=== PATIENT | female | born 1940 | race Caucasian/White ===

== ENCOUNTER → 2016-11-24 | Day surgery (SDC) | payer OTHER ==
[2016-11-12 10:43] VITALS: Ht 160 cm; Wt 88.6 kg
[~2016-11-24] VITALS: Ht 160 cm; Wt 88.6 kg
[~2016-11-24] MED LIST: 500ML BSS 0.3ML EPI 1:1000PF IRRIG ONE; ACET-749 PO; ACETAMINOPHEN 325 MG TAB PO PRN; AMVISC PLUS 0.8ML SYRINGE INT OCU ONE; ASPI81TA28 PO; ATROPINE SULFATE 0.1 MG/ML 5ML SYR IV PRN; BSS FLUSH ONE; EpHEDrine SULFATE INJ 50 MG/ML AMP IV PRN; EpINEphrine INJ 1MG/ML AMP 1 MG/ML AMP ONE; LACTATED RINGER'S 1000ML 500 ML IV SCH; LIDOCAINE 3.5% OPH GEL PER APPLICATION CHARGE ONE; LIDOCAINE HCL 1% MPF 2 ML VIAL ONE; LOSA1TAB38 PO; MIDAZOLAM HCL 1 MG/ML 2ML VIAL ONE; MULT-190 PO; NAPR1TAB9 PO; OCUCOAT 1 ML SOLN IO ONE; ONDANSETRON INJ 2 MG/ML 2 ML VIAL IV PRN; POVIDONE-IODINE OP SOLN 30 ML BTL ONE; PROPARACAINE 0.5% OP SOLN PER DROP CHARGE OPR SCH; SIMV40TA2 PO; SPIR1TAB71 PO; TEMA15CA4 PO; TOBRAMYCIN/DEXAMETHASONE OPH OINT PER APPLN CHARGE ONE; VENL37.593 PO; VITA1TAB4 PO; VNTHFA/IN INH; ZAFI1TAB10 PO
[2016-11-24] MEDS: PHENYLEPHRINE HCL 2.5% OP SOLN PER DROP CHARGE OPR SCH ×2 (11:02→11:06)
[2016-11-24] MEDS: TROPICAMIDE 1% OP SOLN PER DROP CHARGE OPR SCH ×2 (11:03→11:07)
[2016-11-24] MEDS: CYCLOPENTOLATE HCL 1% OP SOLN PER DROP CHARGE OPR SCH ×2 (11:03→11:08)
[2016-11-24] MEDS: GATIFLOXACIN OP SOLN PER DROP CHARGE OPR SCH ×2 (11:04→11:14)
[2016-11-24] MEDS: KETOROLAC 0.5% OP SOLN PER DROP CHARGE OPR SCH ×2 (11:04→11:08)
--- NOTE | 2016-11-24 11:18 | History & Physical Bridge - [place] ---
H&P Re-Evaluation Bridge Note: I have examined the patient, reviewed the History & Physical and in the interval since the performance of the History & Physical I have noted the following changes of clinical significance: No changes noted
--- NOTE | 2016-11-24 12:34 | Discharge Instructions-SurgCtr ---
Discharge Instructions Date of Service Nov 24, 2016. Visit Reason for Visit: Right Cataract Discharge Discharge Diagnosis / Problem: cataract Discharge Goals Goal(s): Improve function Medications Stopped Medications Name(s): Stopped ASA and Naproxen 1 week ago. Activity Recommendations Activity Limitations: per Instructions/Follow-up section Anesthesia . Post Anesthesia Instructions: If you have had General Anesthesia or IV Sedation: * Do not drive today. * Resume driving when surgeon permits. * Do not make important decisions or sign legal documents today. * Call surgeon for: 1. Temperature elevations greater than 101 degrees F. 2. Uncontrollable pain. 3. Excessive bleeding. 4. Persistent nausea and vomiting. 5. Medication intolerance (nausea, vomiting or rash). * For nausea and vomiting use only clear liquids such as: tea, soda, bouillon until nausea subsides, then gradually increase diet as tolerated. * If you have any concerns or questions, call your surgeon's office. If physician is unavailable and it is an emergency, call 911 or go to the nearest emergency room. . Instructions / Follow-Up Instructions / Follow-Up ACTIVITY RECOMMENDATIONS: * No strenuous lifting, jogging or running for 4 days * No swimming or yard work for 1 week. * Limited bending is permitted, such as putting on shoes. RETURN TO SCHOOL/WORK: No work until seen by physician in office. MEDICATIONS: Resume previous medications unless instructed otherwise by your surgeon. This includes eye drops for glaucoma. Zymaxid/Gatifloxacin (ramos cap) - one drop every 2 hours until bedtime Nevanac/Ilevro/Prolensa/Ketorolac (chen cap) - one drop every 4 hours until bedtime Prednisolone/Durezol (white/pink cap, SHAKE WELL) - one drop every 2 hours until bedtime Starting tomorrow - all 3 drops every 4 hours until seen in the office Optive drops - as needed for discomfort SPECIAL CARE INSTRUCTIONS: * Wear eyeshield when sleeping, for four nights. * You may wear your own glasses or sunglasses while awake. * You may read or watch TV * You may shower and wash your face, but be gentle around the eye and pat dry. * Blurry vision and mild irritation are normal. * Call office if pain is more severe or vision becomes dark at . FOLLOW UP VISIT: Follow-up with Dr Lawrence tomorrow. Diet Recommendations Home Diet: resume previous diet Procedures Procedures Performed: Right Cataract Phacoemulsification With Intraocular Lens Implant Pending Studies Studies pending at discharge: no Medical Emergencies . Who to Call and When: Medical Emergencies: If at any time you feel your situation is an emergency, please call 911 immediately. . Non-Emergent Contact Non-Emergency issues call your: Copy Lathe Operator . . "Provider Documentation" section prepared by Aaron Lawrence. .
[2016-11-24 12:35] VITALS: TEMP 36.3
--- NOTE | 2016-11-24 12:35 | [facility] Operative Report ---
Operative Report Date of Service Nov 24, 2016. Operative Report 1. PREOPERATIVE DIAGNOSIS: Cataract of the right eye. 2. POSTOPERATIVE DIAGNOSIS: Same. 3. PROCEDURE: Phacoemulsification with intraocular lens implantation of the right eye. SURGEON: Dr. Aaron Lawrence. ANESTHESIA: Topical Lidocaine gel, 1% Non- Preserved intracameral Lidocaine, and monitored intravenous sedation. INDICATIONS FOR THE PROCEDURE: The patient is a 76 - year-old female with a history of cataract of the right eye causing significant visual impairment. The details of the proposed procedure were explained to the patient who asked appropriate questions and following discussion of all risks, benefits and alternatives agreed to have the procedure done. 4. OPERATION AND FINDINGS: DESCRIPTION OF PROCEDURE: After informed consent was obtained, the patient was brought to the Operating Room at the [facility]. The patient was placed in a supine position and then the right eye was prepped and draped in the usual sterile fashion for intraocular surgery. A drop of topical Lidocaine gel was placed in the operative eye. A wire lid speculum was then placed in the fornices. A corneal paracentesis was then created temporally. The Non-Preserved Lidocaine was then instilled into the anterior chamber. The anterior chamber was then pressurized with viscoelastic. A 2.0 mm clear corneal incision was then created temporally. A cystotome was inserted into the anterior chamber and used to create a tear in the anterior lens capsule. This capsular tear was then used to create a small flap and the flap was dragged in a counterclockwise direction in order to create a continuous curvilinear capsulorrhexis. Hydrodissection was accomplished with balanced salt solution. Phacoemulsification of the lens nucleus was then performed in a standard [id number] technique. The phaco time was 24 seconds with an average power of 16 %. The remaining cortical material was removed using irrigation aspiration. The capsular bag was then filled with viscoelastic. A [employer]ch [employer] Lomb MI60L +18.5 diopters lens was then loaded into the injector and injected into the capsular bag. The remaining viscoelastic was removed with the irrigation aspiration handpiece. The wound was hydrated and then checked and found to be watertight. The intraocular pressure was checked and found to be adequate. The wire lid speculum was removed and the patient's face was cleaned and dried. TobraDex ointment was placed in the inferior fornix. The patient was discharged to the Recovery Room having tolerated the procedure well. There were no complications. The patient will be seen tomorrow in the office for follow-up. I attest to the content of the Intraoperative Record and any orders documented therein. Any exceptions are noted below.
--- NOTE | 2016-11-24 12:58 | Anesthesia Progress Nt - [facility] ---
Anesthesia Post Op Note Date & Time Nov 24, 2016 at 12:58 Vital Signs Pain Intensity: 0 Vital Signs Past 12 Hours Date Time Temp Pulse Resp B/P (MAP) Pulse Ox O2 Delivery O2 Flow Rate FiO2 11/24/16 12:35 36.3 91 16 162/70 (100) 98 Room Air 11/24/16 10:50 36.6 87 16 146/85 (105) 97 Room Air Notes Mental Status: alert / awake / arousable, participated in evaluation Pt Amnestic to Procedure: Yes Nausea / Vomiting: adequately controlled Pain: adequately controlled Airway Patency, RR, SpO2: stable & adequate BP & HR: stable & adequate Hydration State: stable & adequate Anesthetic Complications: no major complications apparent
[2016-11-24 12:59] VITALS: BP 127/67; PULSE 73; O2SAT 96
== END | disposition home or self-care (01) ==
LOC: X.SURG 10:26
PROVIDERS: ATTEND Ophthalmology
DX: H26.9 Unspecified cataract (principal); I10 Essential (primary) hypertension; E78.5 Hyperlipidemia, unspecified; Z79.899 Other long term (current) drug therapy; Z79.82 Long term (current) use of aspirin

== ENCOUNTER → 2017-03-19 | Outpatient (CLI) | payer OTHER ==
[~2017-03-19] MED LIST changes: -500ML BSS 0.3ML EPI 1:1000PF IRRIG ONE; -ACETAMINOPHEN 325 MG TAB PO PRN; -AMVISC PLUS 0.8ML SYRINGE INT OCU ONE; -ATROPINE SULFATE 0.1 MG/ML 5ML SYR IV PRN; -BSS FLUSH ONE; -EpHEDrine SULFATE INJ 50 MG/ML AMP IV PRN; -EpINEphrine INJ 1MG/ML AMP 1 MG/ML AMP ONE; -LACTATED RINGER'S 1000ML 500 ML IV SCH; -LIDOCAINE 3.5% OPH GEL PER APPLICATION CHARGE ONE; -LIDOCAINE HCL 1% MPF 2 ML VIAL ONE; -MIDAZOLAM HCL 1 MG/ML 2ML VIAL ONE; -OCUCOAT 1 ML SOLN IO ONE; -ONDANSETRON INJ 2 MG/ML 2 ML VIAL IV PRN; -POVIDONE-IODINE OP SOLN 30 ML BTL ONE; -PROPARACAINE 0.5% OP SOLN PER DROP CHARGE OPR SCH; -TOBRAMYCIN/DEXAMETHASONE OPH OINT PER APPLN CHARGE ONE
--- NOTE | 2017-03-19 15:38 | MAMMOGRAPHY REPORT ---
BILATERAL DIGITAL SCREENING MAMMOGRAM WITH CAD: 03/19/2017 CLINICAL HISTORY: Routine screening. Patient has no complaints. TECHNIQUE: Current study was also evaluated with a Computer Aided Detection (CAD) system. Bilateral CC and MLO views were obtained. COMPARISON: Comparison is made to exams dated: 03/15/2015 mammogram, 03/18/2016 mammogram, 12/08/2013 ma mmogram, 12/07/2012 mammogram, 12/07/2011 mammogram, and 12/04/2010 mammogram - [facility] nter. BREAST COMPOSITION: There are scattered areas of fibroglandular density in both breasts. FINDINGS: No suspicious masses, calcifications, or areas of architectural distortion are noted in ei ther breast. There has been no significant interval change compared to prior exams. Scattered bilater al benign-appearing calcifications are not significantly changed. IMPRESSION: ACR BI-RADS CATEGORY 2: BENIGN There is no mammographic evidence of malignancy. A 1 year screening mammogram is recommended. The pa tient will receive written notification of the results. Approximately 10% of breast cancers are not detected with mammography. A negative mammographic report should not delay biopsy if a clinically suggestive mass is present. Ashley Wilcox M.D. ah/:03/19/2017 14:02:33 Marketing Operations Intern: Elizabet MENDEZ(R)(M), [facility] letter sent: Normal 1/2 BI-RADS Code: ACR BI-RADS Category 2: Benign
== END | disposition home or self-care (01) ==
LOC: C.MAMM 12:17
PROVIDERS: ATTEND Family Medicine
DX: Z12.31 Encounter for screening mammogram for malignant neoplasm of breast (principal)

== ENCOUNTER 2025-01-17 17:04 | Inpatient (IN) ==
--- NOTE | 2025-01-17 17:21 | Emergency Department Note ---
Impression & Plan Closed right hip fracture, Elevated troponin, Acute dehydration ED Provider Note NAME: CRISTOBAL KUNZ AGE: 84 SEX: F : 1940 ARRIVES VIA: Ambulance INFORMANT: Patient, ED PROVIDER(S): Amarjit Chester MD CHIEF COMPLAINT: Fall, found down MEDICAL DECISION MAKING: Patient presents due to concern for being found down. IV was established and blood work was obtained. Empiric IV Zosyn ordered along with screening chest x- ray bilateral knees as well as right hip and pelvis. Patient likely does have a femoral neck fracture. Patient did receive IV fluids. Patient's troponin is positive at 654 but denies any chest pain. EKG without signs of obvious ischemic changes. Initial lactate of 1.8 CK is normal. White count of 16 with a normal hemoglobin and platelet count. Urinalysis does not show evidence of obvious infection but ketones present consistent with dehydration. Concern for femoral neck fracture Dr. Padgett recommends dedicated hip and femur films of the right side. Patient's other plain films are unremarkable. CT head and cervical spine negative for fracture or dislocation or ICH. Dr. Padgett did review the plain imaging and recommended a CT of the pelvis which is ordered. I did speak the on-call hospital service Dr. Brink and the patient was admitted to the medicine service. Discussion w/ other healthcare providers: Dr. Padgett orthopedics Dr. Brink inpatient medicine service Prior /Outside records reviewed: None Differential diagnosis: Fracture, dislocation, contusion, strain, sprain, ICH, hemothorax, intra- abdominal injury, anemia among other causes were considered. Diagnostics, as interpreted by me: ECG: Normal sinus rhythm, rate of 93, normal intervals, normal axis Q waves anteriorly no obvious STEMI. Motion artifact in V4. Cardiac monitoring: An order was placed for continuous cardiac monitoring. The monitor shows a rate of 90 with sinus rhythm. Patient was placed on pulse oximetry Medical decision rules: None Imaging studies: I informally interpreted the patient's pelvic x-ray shows concern for right femoral neck fracture with formal report to follow. HPI:Patient presents from home after being found down by the hairdresser. Likely down for approximate day in duration. Patient primarily does complain of right hip pain. BSG prior to arrival was in the 130s. Afebrile. Patient denies any head neck chest back or abdominal pain. Patient does not take any blood thinning medications. PAST MEDICAL HISTORY: See Below PAST SURGICAL HISTORY: See Below SOCIAL HISTORY: See Below HOME MEDICATIONS: See Below ALLERGIES: See Below VITALS: See Below PHYSICAL EXAMINATION: GENERAL: Soiled, awake and alert does follow commands. EYE EXAM: Normal conjunctiva. PERRL, no anisocoria and EOM's grossly intact w/o pain. OROPHARYNX: Dry mucus membranes, grossly normal dentition. NECK: Trachea midline, no stridor. LUNGS: Clear to auscultation. Normal chest wall mechanics. HEART: NSR, no MRG. ABDOMEN: Abdomen soft, non-tender, no masses, no rebound or guarding. BACK: No CVA TTP. No midline thoracic or lumbar TTP. SKIN: Bruising noted to the bilateral knees as well as right hip. UPPER EXTREMITIES: Upper extremities are grossly normal. LOWER EXTREMITIES: Pain to palpation of the right hip and bilateral knees. Decreased range of motion of right lower extremity secondary to pain. NEURO EXAM: Awake and alert, follows commands, no obvious facial asymmetry, normal speech, moves all 4 extremities. Past Med/Surg History Problem List (Updated 01/18/25 @ 15:46 by Amarjit Chester MD) Acute dehydration (Acute) Abnormal echocardiogram Age-related osteoporosis with current pathol fracture of right femur History of kidney cancer Fall from standing Hypokalemia Stercoral colitis Demand ischemia of myocardium Elevated troponin (Acute) Closed right hip fracture (Acute) Encounter for pre-operative examination Medical History (Updated 01/18/25 @ 15:46 by Amarjit Chester MD) Osteoarthritis Macular degeneration of left eye Depression Anxiety Cancer kidney cancer Hypothyroidism Hypertension Hyperlipidemia Seasonal allergies Environmental allergies Asthma Surgical History Hx of cataract extraction right Hx of cholecystectomy History of ovarian cystectomy History of tonsillectomy and adenoidectomy Hx of appendectomy Hx of total hysterectomy History of pancreatic surgery cyst removed Hx of partial thyroidectomy right side History of right nephrectomy Social History Smoking Status: Never smoker Second Hand Exposure: No; Do You Dip or Chew Tobacco: No; Hx Alcohol Use: Yes Alcohol type: wine Hx Substance Use: No Preferred Language: Setswana Communication Ability: Effective Associate Doctor Required: No Beliefs That Will Affect Care: None Current Living Situation: Spouse Other Information That Helps Us Care for You: No Feels Safe at Home: Yes Safety Concerns: Feels Safe At This Time Assistive Devices: Cane, Glasses and Walker Allergies Allergies Allergy/AdvReac Type Severity Reaction Status Date / Time Iodinated Contrast Media Allergy Intermediate HIVES,RASH Verified 09/20/18 10:03 [Iodinated Contrast- Oral and IV Dye] Home Meds Home Medications Medication Instructions Recorded Confirmed aspirin 81 mg tablet,delayed 81 mg PO QAM 08/23/18 01/17/25 release (Mateus Low Dose Aspirin) hydrochlorothiazide 25 mg tablet 25 mg PO QDL 08/23/18 01/17/25 latanoprost 0.005 % eye drops 1 drp OPB HS 08/23/18 01/17/25 losartan 100 mg tablet 100 mg PO QPM 08/23/18 01/17/25 omeprazole magnesium 20 mg 20 mg PO QAM 08/23/18 01/17/25 tablet,delayed release (Prilosec OTC) rizatriptan 10 mg disintegrating 10 mg PO DAILY PRN Migraine 08/23/18 01/17/25 tablet (Maxalt-UNDERBASTER) Headache simvastatin 40 mg tablet 40 mg PO PM 08/23/18 01/17/25 sulindac 150 mg tablet 150 mg PO BID 08/23/18 01/17/25 temazepam 15 mg capsule 15 mg PO HS PRN Sleep 08/23/18 01/17/25 venlafaxine 37.5 mg tablet 37.5 mg PO QPM 08/23/18 01/17/25 vit C 50 mg-E 15 unit-zinc cit 4.5 1 tab PO QDL 08/23/18 01/17/25 mg-lutein 2.5 mg-zeaxan chew tablet ([facility] vitamin E 268 mg (400 unit) capsule 400 unit PO QAM 08/23/18 01/17/25 cinacalcet 30 mg tablet 30 mg PO QAM 01/17/25 01/17/25 duloxetine 60 mg capsule,delayed 120 mg PO QAM 01/17/25 01/17/25 release famotidine 20 mg tablet 20 mg PO HS 01/17/25 01/17/25 metoprolol succinate 100 mg 100 mg PO QAM 01/17/25 01/17/25 tablet,extended release 24 hr pregabalin 50 mg capsule 50 mg PO TID 01/17/25 01/17/25 zafirlukast 20 mg tablet 20 mg PO QAM 01/17/25 01/17/25 Results & Data (ED) Vital Signs Vital Signs - 24 hr 01/17/25 17:17 01/17/25 17:26 01/17/25 17:26 Temperature 36.6 C 36.6 C Temperature Source Oral Pulse Rate 88 88 Pulse Rate [Apical] Pulse Rate from SpO2 Sensor Respiratory Rate 16 16 Blood Pressure 159/83 H 159/83 H Blood Pressure [Left Arm] Blood Pressure Mean 108 Blood Pressure Mean [Left Arm] Blood Pressure Position [Left Arm] Pulse Oximetry 100 100 Oxygen Delivery Method Room Air Room Air Room Air Oxygen Flow Rate 0 Sepsis New/Unexplained Change in Mental Status No Sepsis Action Taken by Nursing No Action Required 01/17/25 17:30 01/17/25 17:31 01/17/25 17:36 Temperature Temperature Source Pulse Rate 88 96 H Pulse Rate [Apical] Pulse Rate from SpO2 Sensor 91 H Respiratory Rate 19 Blood Pressure 168/90 H Blood Pressure [Left Arm] Blood Pressure Mean 126 Blood Pressure Mean [Left Arm] Blood Pressure Position [Left Arm] Pulse Oximetry 96 Oxygen Delivery Method Room Air Oxygen Flow Rate Sepsis New/Unexplained Change in Mental Status Sepsis Action Taken by Nursing 01/17/25 17:51 01/17/25 18:00 01/17/25 18:08 Temperature Temperature Source Pulse Rate 91 H 89 Pulse Rate [Apical] Pulse Rate from SpO2 Sensor 90 Respiratory Rate 16 20 Blood Pressure 163/86 H Blood Pressure [Left Arm] Blood Pressure Mean 129 Blood Pressure Mean [Left Arm] Blood Pressure Position [Left Arm] Pulse Oximetry 97 Oxygen Delivery Method Room Air Oxygen Flow Rate Sepsis New/Unexplained Change in Mental Status Sepsis Action Taken by Nursing 01/17/25 18:26 01/17/25 18:44 01/17/25 19:33 Temperature Temperature Source Pulse Rate Pulse Rate [Apical] 102 H Pulse Rate from SpO2 Sensor Respiratory Rate 20 18 Blood Pressure Blood Pressure [Left Arm] 168/78 H 153/81 H Blood Pressure Mean Blood Pressure Mean [Left Arm] 108 105 Blood Pressure Position [Left Arm] Lying Pulse Oximetry 96 98 Oxygen Delivery Method Room Air Room Air Room Air Oxygen Flow Rate Sepsis New/Unexplained Change in Mental Status Sepsis Action Taken by Snf Medications Current Medication List: was personally reviewed by me Laboratory Data Attestation: I reviewed the patient's lab results. 01/18/25 07:41 01/18/25 07:41 Lab Results 01/17/25 01/17/25 Range/Units 15:51 19:25 WBC 16.85 H (4.8-10.8) K/ul RBC 4.45 (4.20-5.40) M/uL Hgb 13.5 (12.0-16.0) g/dl Hct 39.8 (37.0-47.0) % MCV 89.4 (80.0-100.0) fL MCH 30.3 (25.0-34.0) pg MCHC 33.9 (32.0-36.0) g/dL RDW Std Deviation 45.9 (36.4-46.3) fL RDW Coeff of Gary 14.0 (11.5-14.5) % Plt Count 241 (130-400) K/uL MPV 11.4 (9.4-12.4) fL Immature Gran % (Auto) 0.9 % Neut % (Auto) 86.7 % Lymph % (Auto) 5.2 % Ward % (Auto) 7.1 % Eos % (Auto) 0.0 % Baso % (Auto) 0.1 % Neut # (Auto) 14.61 H (1.40-6.50) K/uL Lymph # (Auto) 0.87 L (1.20-3.40) K/uL Ward # (Auto) 1.19 H (0.11-0.59) K/uL Eos # (Auto) 0.00 (0.00-0.50) K/uL Baso # (Auto) 0.02 (0.00-0.20) K/uL Immature Gran # (Auto) 0.16 (0.01-0.20) K/uL PT 10.5 (9.0-12.0) Seconds INR 1.0 (0.9-1.1) APTT 27 (21-31) Seconds PTT Ratio 1.0 Sodium 141 (136-145) mmol/L Potassium 3.1 L (3.5-5.1) mmol/L Chloride 106 (98-107) mmol/L Carbon Dioxide 27 (21-32) mmol/L Anion Gap 8 (3-11) BUN 28 H (6-23) mg/dl Creatinine 0.66 (0.6-1.2) mg/dl Est Cr Clr Drug Dosing 65.2 ml/min eGFR 87.53 BUN/Creatinine Ratio 42.4 H (10-20) Glucose 148 H (70-99(Fasting)) mg/dl Lactate 1.8 (0.4-2.0) mmol/L Calcium 10.7 H (8.6-10.3) mg/dl Magnesium 2.0 (1.7-2.4) mg/dl Total Bilirubin 1.0 (0.2-1.0) mg/dl AST 33 (13-39) U/L ALT 25 (7-52) U/L Alkaline Phosphatase 82 (34-104) U/L Total Creatine Kinase 178 (26-192) U/L Troponin I High Sens 654.7 H* (0-14) pg/ml Total Protein 5.9 L (6.0-8.3) gm/dl Albumin 3.1 L (3.4-5.0) gm/dl Globulin 2.8 (2.5-4.0) gm/dl Albumin/Globulin Ratio 1.1 (0.9-2) Lipase < 3 L (11-82) U/L Procalcitonin 0.09 (0-0.5) ng/ml TSH 1.838 (0.300-4.500) uIu/ml Urine Color Dark Yellow Urine Appearance Clear (Clear) Urine pH 6.0 (4.5-7.5) Ur Specific [place] 1.031 H (1.000-1.030) Urine Protein 2+ H (Negative) Urine Glucose (UA) Trace H (Negative) Urine Ketones 3+ H (Negative) Urine Blood Negative (Negative) Urine Nitrite Negative (Negative) Urine Bilirubin Negative (Negative) Urine Urobilinogen Negative (Negative) Ur Leukocyte Esterase Negative (Negative) Urine WBC (Auto) 0-5 (0-5) /hpf Urine RBC (Auto) 0-2 (0-2) /hpf U Hyaline Cast (Auto) 0-2 (0-2) /lpf U Epithel Cells (Auto) 3-5 H (0-2) /hpf Urine Bacteria (Auto) None Seen (None Seen) Urine Comment Administered Medications Acetaminophen (Acetaminophen 500 Mg Tab) 1,000 mg PO TID [facility] Stop: 02/17/25 08:59 Last Admin: 01/18/25 11:16 Dose: Not Given Documented By: ALONZO Cinacalcet (Cinacalcet Hcl 30 Mg Tab) 30 mg PO QAM [facility] Stop: 02/17/25 08:59 Last Admin: 01/18/25 08:36 Dose: Not Given Documented By: ALONZO Docusate Sodium (Docusate Sodium 100 Mg Cap) 100 mg PO BID JJ Stop: 02/17/25 08:59 Last Admin: 01/18/25 11:16 Dose: Not Given Documented By: ALONZO Duloxetine HCl (Dul[facility]etine Hcl 60 Mg Cap) [facility] [place]: 02/17/25 08:59 Last Admin: 01/18/25 08:36 Dose: Not Given Documented By: ALONZO Famotidine (Famotidine 20 Mg Tab) 20 mg PO [facility] Stop: 02/17/25 00:12 Last Admin: 01/18/25 01:33 Dose: 20 mg Documented By: RICHARD Ceftriaxone Sodium (Rocephin) 1,000 mg in 50 mls @ 100 mls/hr IV Q24H [facility] Stop: 01/22/25 08:59 Last Infusion: 01/18/25 15:25 Dose: Infused Documented By: Admin: 01/18/25 10:37 Dose: 100 mls/hr Documented By: MG Lactulose (Lactulose Syrup 20 Gm/30 Ml Udc) 20 gm PO TID [facility] Stop: 02/17/25 08:59 Last Admin: 01/18/25 11:16 Dose: Not Given Documented By: ALONZO Latanoprost (Latanoprost 0.005% Op Soln 2.5 Ml Btl) 1 drops OPB [facility] Stop: 02/17/25 00:12 Last Admin: 01/18/25 01:35 Dose: 1 drops Documented By: RICHARD Losartan Potassium (Losartan Potassium 50 Mg Tab) 100 mg PO QPM [facility] Stop: 02/17/25 00:12 Last Admin: 01/18/25 01:33 Dose: 100 mg Documented By: RICHARD Metoprolol Succinate (Metoprolol Succ 50mg Ext Rel Tab) [facility] [place]: 02/17/25 08:59 Last Admin: 01/18/25 08:34 Dose: 100 mg Documented By: ALONZO Miscellaneous (Zafirlukast - Order Awaiting Action) 1 each N/A QS [facility] Stop: 02/17/25 07:59 Last Admin: 01/18/25 08:29 Dose: Not Given Documented By: ALONZO Multivitamins/Minerals (Cerovite Adv Formula Tab) 1 tab PO QDL JJ Stop: 02/17/25 11:29 Last Admin: 01/18/25 12:38 Dose: Not Given Documented By: ALONZO Pantoprazole Sodium (Pantoprazole 40 Mg Tab) 40 mg PO QAM [facility] Stop: 02/17/25 08:59 Last Admin: 01/18/25 08:36 Dose: Not Given Documented By: ALONZO Pregabalin (Pregabalin 50 Mg Cap) 50 mg PO TID [facility] Stop: 02/17/25 00:12 Last Admin: 01/18/25 08:34 Dose: 50 mg Documented By: Admin: 01/18/25 01:33 Dose: 50 mg Documented By: RICHARD Simvastatin (Simvastatin 40 Mg Tab) 40 mg PO PM JJ Stop: 02/17/25 00:12 Last Admin: 01/18/25 01:34 Dose: 40 mg Documented By: RICHARD Venlafaxine HCl (Venlafaxine Hcl 37.5 Mg Tab) 37.5 mg PO QPM [facility] Stop: 02/17/25 00:12 Last Admin: 01/18/25 01:34 Dose: 37.5 mg Documented By: RICHARD Vitamin E (Tocopheryl, Dl-Alpha 400 Units 180 Mg Cap) 180 mg PO QAM [facility] Stop: 02/17/25 08:59 Last Admin: 01/18/25 08:36 Dose: Not Given Documented By: ALONZO Discontinued Medications Fentanyl Citrate (Fentanyl Citrate Pf 100 Mcg/2 Ml Vial) 25 mcg IV Q5M PRN PRN Reason: PACU Use Only-Pain Stop: 01/18/25 18:33 Last Admin: 01/18/25 13:33 Dose: 25 mcg Documented By: MAC Piperacillin Sod/Tazobactam Sod (Zosyn) 4.5 gm in 100 mls @ 200 mls/hr IV NOW ONE; Protocol Stop: 01/17/25 17:50 Last Infusion: 01/17/25 19:32 Dose: Infused Documented By: Admin: 01/17/25 18:38 Dose: 200 mls/hr Documented By: GARY Sodium Chloride (Nss) 1,000 mls @ 999 mls/hr IV .Q1H1M ONE Stop: 01/17/25 18:21 Last Infusion: 01/17/25 22:46 Dose: Infused Documented By: Admin: 01/17/25 18:11 Dose: 999 mls/hr Documented By: GARY Piperacillin Sod/Tazobactam Sod (Zosyn) 4.5 gm in 100 mls @ 25 mls/hr IV Q8H JJ; Protocol Stop: 01/20/25 00:59 Last Infusion: 01/18/25 08:56 Dose: Infused Documented By: Admin: 01/18/25 08:49 Dose: 25 mls/hr Documented By: Infusion: 01/18/25 06:40 Dose: Infused Documented By: Admin: 01/18/25 01:33 Dose: 25 mls/hr Documented By: RICHARD Potassium Chloride (K Ben[place] / Wtr) 10 meq in 100 mls @ 100 mls/hr IV Q1H JJ Stop: 01/17/25 22:44 Last Infusion: 01/17/25 23:46 Dose: Infused Documented By: Admin: 01/17/25 22:46 Dose: 100 mls/hr Documented By: Infusion: 01/17/25 22:14 Dose: Infused Documented By: Admin: 01/17/25 21:14 Dose: 100 mls/hr Documented By: Acetaminophen (Ofirmev) 1,000 mg in 100 mls @ 400 mls/hr IV NOW STA Stop: 01/18/25 02:44 Last Admin: 01/18/25 03:51 Dose: Not Given Documented By: RICHARD Sodium Chloride (Nss) 1,000 mls @ 80 mls/hr IV .[id number] JJ Stop: 01/21/25 08:59 Last Admin: 01/18/25 09:58 Dose: 80 mls/hr Documented By: ALONZO Cefazolin Sodium (Ancef 2000mg) 2,000 mg in 15 mls @ 3.75 mls/min IV ONCE ONE; Protocol Stop: 01/18/25 12:32 Last Admin: 01/18/25 11:11 Dose: 3.75 mls/min Documented By: MEGHA Potassium Chloride (Potassium Chloride Crtab 20 Meq Tabcr) 20 meq PO NOW STA Stop: 01/17/25 20:45 Last Admin: 01/17/25 21:14 Dose: 20 meq Documented By: Potassium Chloride (Potassium Chloride Crtab 20 Meq Tabcr) 40 meq PO NOW STA Stop: 01/18/25 07:37 Last Admin: 01/18/25 08:56 Dose: 40 meq Documented By: ALONZO Imaging Data Radiologist's Impression: Chest X-Ray 01/17/25 17:09 Clinical History: Trauma Technique: A frontal view of the chest was obtained Findings: There are no confluent pulmonary infiltrates. The heart size is within normal limits. No pleural effusion or pneumothorax is seen. There is no definite pulmonary nodule. No fracture is noted. There is thoracic scoliosis and degenerative disc disease Impression: No active disease Electronically signed by Shalom Hameed 01-17-2025 6:08 PM Pelvis X-Ray 01/17/25 17:09 Clinical History: Trauma One view of the pelvis is submitted for review. Findings: There is a possible right femoral neck fracture. Evaluation is limited by suboptimal positioning No subluxation or dislocation is seen. No significant arthritic changes are noted. No other osseous abnormality is identified. There are no radiopaque foreign bodies. Impression: Possible right femoral neck fracture. Additional radiographic views or CT is recommended ACT 112: Positive. There are findings on this exam that require communication between the performing entity and the patient following Patient Test Result Information Act ([place] ACT 112) guidelines. Electronically signed by Shalom Hameed 01-17-2025 6:[address] 01/17/25 17:10 Clinical history: Fall Technique: Axial computed tomography images were obtained of the cervical spine without intravenous contrast. Sagittal and coronal reconstructions were obtained Findings: No fracture is identified. No listhesis is seen. No focal osseous lesion is evident. There is atlantoaxial osteoarthritis At C2-3, no disc herniation is identified. There is no spinal stenosis. The neural foramen are patent At C3-4, there is a mild disc bulge without spinal stenosis. There is left neural foramen narrowing that may affect the left C4 nerve root At C4-5, there is mild spinal stenosis due to a disc bulge and a left paracentral disc protrusion. There is right neural foramen narrowing that may affect the right C5 nerve root At C5-6, there is spinal stenosis due to a disc bulge. There is bilateral neural foramen narrowing that may affect the exiting C6 nerve roots At C6-7, there is a disc bulge without clear spinal cord deformity. There is left neural foramen narrowing that may affect the left C7 nerve root At C7-T1, there is a mild disc bulge without spinal stenosis. The neural foramen are patent The lung apices appear clear. The visualized soft tissues of the neck appear unremarkable. No foreign body is seen Impression: 1. No definite cervical spine fracture 2. Spinal stenosis at C4-5 and C5-6 3. Left C3-4, right C4-5, bilateral C5-6, and left C6-7 neural foramen narrowing. This may affect the exiting nerve roots Electronically signed by Shalom Hameed 01-17-2025 7:[address] 01/17/25 17:10 Clinical History: Fall Technique: Axial computed tomography images were obtained of the brain without intravenous contrast. Findings: There is diffuse cerebral atrophy, within expected limits for the patient's age. Areas of decreased attenuation are seen within the periventricular white matter, likely representing chronic small vessel ischemic disease. There is no definite sign of acute or old infarction. No intracranial hemorrhage is evident. No definite mass lesion is seen on this noncontrast examination. There is no midline shift or other form of herniation. No hydrocephalus is seen. No fracture is identified. The orbits and the visualized paranasal sinuses appear unremarkable. The mastoid air cells appear clear. Impression: 1. Cerebral atrophy and chronic small vessel ischemic disease 2. Otherwise unremarkable noncontrast CT of the brain Electronically signed by Shalom Hameed 01-17-2025 6:47 PM Femur X-Ray 01/17/25 17:21 Clinical History: Pain. 4 views of the left femur are submitted for review. Findings: No fracture or dislocation is seen. No significant arthritic changes of the left hip joint are noted. No other osseous abnormality is identified. There are no radiopaque foreign bodies. Impression: Unremarkable radiographs of the left femur Electronically signed by Shalom Hameed 01-17-2025 6:17 PM Knee X-Ray 01/17/25 17:21 Clinical History: Pain. 3 views of the right knee are submitted for review. Findings: No fracture or dislocation is seen. There is joint space narrowing in the medial and lateral compartments. There are osteophytes in all 3 compartments. No other osseous abnormality is identified. There are no radiopaque foreign bodies. Impression: Severe right knee osteoarthritis Electronically signed by Shalom Hameed 01-17-2025 6:17 PM Knee X-Ray 01/17/25 17:21 Clinical History: Pain. 3 views of the left knee are submitted for review. Findings: No fracture or dislocation is seen. There is joint space narrowing in the medial compartment. There are osteophytes in all 3 compartments. No other osseous abnormality is identified. There are no radiopaque foreign bodies. Impression: Moderate severity left knee osteoarthritis Electronically signed by Shalom Hameed 01-17-2025 6:16 PM Femur X-Ray 01/17/25 19:37 Frontal and lateral views of the right femur. No comparison Impression Subtle luce obliquely oriented lucency in the intertrochanteric region seen on the frontal image and again faintly visualized on the crosstable lateral suggesting a nondisplaced intertrochanteric fracture within same. CT of the right hip recommended for further evaluation. Advanced degenerative changes of the right knee. Electronically signed by Moses Emerson 01-17-2025 8:49 PM Pelvis X-Ray 01/17/25 19:37 Exam(s): XR PELVIS, 1-2 views EXAM: XR Pelvis, 1 or 2 Views CLINICAL HISTORY: Reason for exam: fall, pain. TECHNIQUE: Frontal view of the pelvis. COMPARISON: 01/17/2025 FINDINGS: Bones/joints: No acute fracture. No dislocation. Soft tissues: Unremarkable. IMPRESSION: No acute osseous findings. Electronically signed by: Samantha Helton M.D. 01/17/25 22:50 PM Discharge Plan Visit Data Chief Complaint: Trauma Stated Complaint: FALL, CONFUSION ED Provider: Amarjit Chester Discharge Problem: Closed right hip fracture, Elevated troponin, Acute dehydration Patient Disposition: Admitted As Inpatient Condition: Fair Discharge Instructions Interventions: ED Discharge Assessment Last Done: 01/17/25 23:13 Discharge Problem: Closed right hip fracture Qualifiers: Encounter type: initial encounter Qualified Code(s): S72.001A - Fracture of unspecified part of neck of right femur, initial encounter for closed fracture
[2025-01-17 17:36] LABS: Hematocrit (blood only) 39.8 % (37.0-47.0); Hemoglobin 13.5 g/dl (12.0-16.0); Immature Granulocytes # (auto) 0.16 K/uL (0.01-0.20); Immature Granulocytes % (auto) 0.9 %; Mean Corpuscular Hemoglobin 30.3 pg (25.0-34.0); Mean Corpuscular Volume 89.4 fL (80.0-100.0); Platelet Count 241 K/uL (130-400); RDW Standard Deviation 45.9 fL (36.4-46.3); Red Blood Count 4.45 M/uL (4.20-5.40); White Blood Count 16.85 K/ul (4.8-10.8)
[2025-01-17 17:57] LABS: Anion Gap 8 (3-11); Blood Urea Nitrogen 28 mg/dl (6-23); Calcium 10.7 mg/dl (8.6-10.3); Carbon Dioxide 27 mmol/L (21-32); Chloride 106 mmol/L (98-107); Creatinine Clr Calc Pharmacy 65.2 ml/min; Glucose 148 mg/dl (70-99(Fasting)); Potassium 3.1 mmol/L (3.5-5.1); Sodium 141 mmol/L (136-145)
[2025-01-17 18:05] LABS: Alanine Aminotransferase 25 U/L (7-52); Albumin Globulin Ratio 1.1 (0.9-2); Alkaline Phosphatase 82 U/L (34-104); Bilirubin,Total 1.0 mg/dl (0.2-1.0); Creatine Kinase 178 U/L (26-192); Globulin 2.8 gm/dl (2.5-4.0); Lipase < 3 U/L (11-82); Magnesium 2.0 mg/dl (1.7-2.4); Total Protein 5.9 gm/dl (6.0-8.3)
[2025-01-17 18:07] LABS: INR 1.0 (0.9-1.1); Partial Thromboplastin Time 27 Seconds (21-31); Prothrombin Time 10.5 Seconds (9.0-12.0)
[2025-01-17 18:09] LABS: Thyroid Stimulating Hormone 1.838 uIu/ml (0.300-4.500)
--- NOTE | 2025-01-17 18:10 | XRay Report ---
Clinical History: Trauma One view of the pelvis is submitted for review. Findings: There is a possible right femoral neck fracture. Evaluation is limited by suboptimal positioning No subluxation or dislocation is seen. No significant arthritic changes are noted. No other osseous abnormality is identified. There are no radiopaque foreign bodies. Impression: Possible right femoral neck fracture. Additional radiographic views or CT is recommended ACT 112: Positive. There are findings on this exam that require communication between the performing entity and the patient following Patient Test Result Information Act ([place] ACT 112) guidelines. Electronically signed by Shalom Hameed 01-17-2025 6:08 PM
--- NOTE | 2025-01-17 18:10 | XRay Report ---
Clinical History: Trauma Technique: A frontal view of the chest was obtained Findings: There are no confluent pulmonary infiltrates. The heart size is within normal limits. No pleural effusion or pneumothorax is seen. There is no definite pulmonary nodule. No fracture is noted. There is thoracic scoliosis and degenerative disc disease Impression: No active disease Electronically signed by Shalom Hameed 01-17-2025 6:08 PM
[2025-01-17] MEDS: SODIUM CHLORIDE 0.9% 1,000 ML IV ONE (18:11)
--- NOTE | 2025-01-17 18:17 | XRay Report ---
Clinical History: Pain. 3 views of the left knee are submitted for review. Findings: No fracture or dislocation is seen. There is joint space narrowing in the medial compartment. There are osteophytes in all 3 compartments. No other osseous abnormality is identified. There are no radiopaque foreign bodies. Impression: Moderate severity left knee osteoarthritis Electronically signed by Shalom Hameed 01-17-2025 6:16 PM
--- NOTE | 2025-01-17 18:18 | XRay Report ---
Clinical History: Pain. 3 views of the right knee are submitted for review. Findings: No fracture or dislocation is seen. There is joint space narrowing in the medial and lateral compartments. There are osteophytes in all 3 compartments. No other osseous abnormality is identified. There are no radiopaque foreign bodies. Impression: Severe right knee osteoarthritis Electronically signed by Shalom Hameed 01-17-2025 6:17 PM
--- NOTE | 2025-01-17 18:18 | XRay Report ---
Clinical History: Pain. 4 views of the left femur are submitted for review. Findings: No fracture or dislocation is seen. No significant arthritic changes of the left hip joint are noted. No other osseous abnormality is identified. There are no radiopaque foreign bodies. Impression: Unremarkable radiographs of the left femur Electronically signed by Shalom Hameed 01-17-2025 6:17 PM
[2025-01-17] MEDS: PIPERACILLIN/TAZOBACTAM 4.5 GM/100 ML BAG IV ONE (18:38)
--- NOTE | 2025-01-17 18:47 | CT Scan Report ---
Clinical History: Fall Technique: Axial computed tomography images were obtained of the brain without intravenous contrast. Findings: There is diffuse cerebral atrophy, within expected limits for the patient's age. Areas of decreased attenuation are seen within the periventricular white matter, likely representing chronic small vessel ischemic disease. There is no definite sign of acute or old infarction. No intracranial hemorrhage is evident. No definite mass lesion is seen on this noncontrast examination. There is no midline shift or other form of herniation. No hydrocephalus is seen. No fracture is identified. The orbits and the visualized paranasal sinuses appear unremarkable. The mastoid air cells appear clear. Impression: 1. Cerebral atrophy and chronic small vessel ischemic disease 2. Otherwise unremarkable noncontrast CT of the brain Electronically signed by Shalom Hameed 01-17-2025 6:47 PM
--- NOTE | 2025-01-17 19:52 | CT Scan Report ---
Clinical history: Fall Technique: Axial computed tomography images were obtained of the cervical spine without intravenous contrast. Sagittal and coronal reconstructions were obtained Findings: No fracture is identified. No listhesis is seen. No focal osseous lesion is evident. There is atlantoaxial osteoarthritis At C2-3, no disc herniation is identified. There is no spinal stenosis. The neural foramen are patent At C3-4, there is a mild disc bulge without spinal stenosis. There is left neural foramen narrowing that may affect the left C4 nerve root At C4-5, there is mild spinal stenosis due to a disc bulge and a left paracentral disc protrusion. There is right neural foramen narrowing that may affect the right C5 nerve root At C5-6, there is spinal stenosis due to a disc bulge. There is bilateral neural foramen narrowing that may affect the exiting C6 nerve roots At C6-7, there is a disc bulge without clear spinal cord deformity. There is left neural foramen narrowing that may affect the left C7 nerve root At C7-T1, there is a mild disc bulge without spinal stenosis. The neural foramen are patent The lung apices appear clear. The visualized soft tissues of the neck appear unremarkable. No foreign body is seen Impression: 1. No definite cervical spine fracture 2. Spinal stenosis at C4-5 and C5-6 3. Left C3-4, right C4-5, bilateral C5-6, and left C6-7 neural foramen narrowing. This may affect the exiting nerve roots Electronically signed by Shalom Hameed 01-17-2025 7:52 PM
[2025-01-17 20:02] LABS: Appearance Urine Clear (Clear); Bacteria Urine Automated None Seen (None Seen); Cast Urine Automated 0-2 /lpf (0-2); Glucose Urine UA Trace (Negative); RBC Urine Automated 0-2 /hpf (0-2); WBC Urine Automated 0-5 /hpf (0-5)
--- NOTE | 2025-01-17 20:40 | History & Physical Report ---
Date of Service January 17, 2025 Assessment & Plan (1) Closed right hip fracture: Plan: Has had a fall sometime last evening with history of fall Not being able to get off following the fall and probably was on the floor overnight Skeletal survey showed right hip fracture Will get orthopedic consultation Leukocytosis Likely secondary to fracture UA is not suggestive of infection Likely has early decubiti Received Zosyn and will continue empirically Skeletal Survey: CT of the cervical spineno fracture but showed spinal stenosis at C4-5 and C5-6 and noted to have left C3-4 right C4-5 bilateral C5-6 and left C6-[address] of the head showed cerebral atrophy and chronic small vessel ischemic changes X-ray of the left femurunremarkable X-ray of pelvispossible right femoral neck fracture is CT of the right hip recommended X-ray of the kneessevere osteoarthritis (2) Elevated troponin: Plan: Denies any chest pain and/or palpitation Troponin was elevated at 654.7 without any significant EKG findings Could be secondary to fall and doubt any ACS Will get serial troponins and also echocardiogram (3) Osteoarthritis: Plan: No acute arthritis involving any of the joint She has been almost bedbound for the last 2 to 3 weeks Will get PT and OT evaluation prior to discharge (4) Depression: Plan: Will continue current antidepressants (5) Hypertension: Plan: Blood pressure on the upper side at 153/81 Continue her current medications Will hold hydrochlorothiazide for now (6) Hyperlipidemia: Plan: Will continue his statin. If the CK is normal (7) Asthma: Plan: Her asthma seems to be controlled without any wheezing and no shortness of breath DVT prophylaxis SCDs for now CODE STATUS Full (8) Cancer: History of Present Illness Chief Complaint: Was found on the floor by family members sometime today Primary Care Provider: Rakel Lee MD She is an 84-year-old female with significant past medical history of hypertension, generalized osteoarthritis, history of renal cancer, hyperlipidemia, moderate persistent asthma, mild depression, hypertensive kidney disease stage III 3A and also personal history of falls apparently was found on floor today by the family members. She cannot remember falling the evening before and apparently she was on floor probably whole night and could not manage to get up. She cannot remember how did she fall and he did not have any warning before the fall. Denies any recent fever and/or chills and denies any problem with urine and bowel habits. She complains of pain in the right hip with any movement of the lower extremities and complains to have irritation in the skin send the back. Denies any chest pain, palpitation or shortness of breath,. She was noted to have right hip fracture and also her troponin was elevated with increasing white count as well. She was started with empiric Zosyn and also orthopedic consult and was admitted to medical telemetry unit for continuation of care Allergies Allergy/AdvReac Type Severity Reaction Status Date / Time Iodinated Contrast Media Allergy Intermediate HIVES,RASH Verified 09/20/18 10:03 [Iodinated Contrast- Oral and IV Dye] Home Medications Medication Instructions Recorded Confirmed Type aspirin 81 mg tablet,delayed 81 mg PO QAM 08/23/18 01/17/25 History release (Mateus Low Dose Aspirin) hydrochlorothiazide 25 mg tablet 25 mg PO QDL 08/23/18 01/17/25 History latanoprost 0.005 % eye drops 1 drp OPB HS 08/23/18 01/17/25 History losartan 100 mg tablet 100 mg PO QPM 08/23/18 01/17/25 History omeprazole magnesium 20 mg 20 mg PO QAM 08/23/18 01/17/25 History tablet,delayed release (Prilosec OTC) rizatriptan 10 mg disintegrating 10 mg PO DAILY PRN Migraine 08/23/18 01/17/25 History tablet (Maxalt-[employer]) Headache simvastatin 40 mg tablet 40 mg PO PM 08/23/18 01/17/25 History sulindac 150 mg tablet 150 mg PO BID 08/23/18 01/17/25 History temazepam 15 mg capsule 15 mg PO HS PRN Sleep 08/23/18 01/17/25 History venlafaxine 37.5 mg tablet 37.5 mg PO QPM 08/23/18 01/17/25 History vit C 50 mg-E 15 unit-zinc cit 4.5 1 tab PO QDL 08/23/18 01/17/25 History mg-lutein 2.5 mg-zeaxan chew tablet ([facility]) vitamin E 268 mg (400 unit) capsule 400 unit PO QAM 08/23/18 01/17/25 History cinacalcet 30 mg tablet 30 mg PO QAM 01/17/25 01/17/25 History duloxetine 60 mg capsule,delayed 120 mg PO QAM 01/17/25 01/17/25 History release famotidine 20 mg tablet 20 mg PO HS 01/17/25 01/17/25 History metoprolol succinate 100 mg 100 mg PO QAM 01/17/25 01/17/25 History tablet,extended release 24 hr pregabalin 50 mg capsule 50 mg PO TID 01/17/25 01/17/25 History zafirlukast 20 mg tablet 20 mg PO QAM 01/17/25 01/17/25 History Past Med/Surg History Problem List (Updated 01/17/25 @ 20:33 by Jason Brink MD) Elevated troponin Closed right hip fracture Encounter for pre-operative examination Medical History (Updated 01/17/25 @ 20:33 by Jason Brink MD) Osteoarthritis Macular degeneration of left eye Depression Anxiety Cancer kidney cancer Hypothyroidism Hypertension Hyperlipidemia Seasonal allergies Environmental allergies Asthma Surgical History Hx of cataract extraction right Hx of cholecystectomy History of ovarian cystectomy History of tonsillectomy and adenoidectomy Hx of appendectomy Hx of total hysterectomy History of pancreatic surgery cyst removed Hx of partial thyroidectomy right side History of right nephrectomy Social History Smoking Status: Never smoker Hx Alcohol Use: Yes Alcohol type: wine Hx Substance Use: No Preferred Language: Divehi Communication Ability: Effective Beliefs That Will Affect Care: None Current Living Situation: Spouse Feels Safe at Home: Yes Assistive Devices: Cane and Glasses Review of Systems Review of Systems: All systems reviewed and are unremarkable except as noted below Physical Exam Physical Exam: Lying in bed with some distress due to his skin irritation and pain with movement of the joints Constitutional: well developed, well nourished, + ill appearing and + obese Eyes: PERRL, conjunctivae normal, anicteric sclerae ENMT: external ear and nose normal, oropharynx normal Neck: trachea midline, no thyromegaly Respiratory: no respiratory distress Auscultation: + diminished lung sounds and + crackles (Minimal crackles at the bases) Cardiovascular: Rate/Rhythm: regular rate, regular rhythm and + tachycardic Heart Sounds: normal S1 and normal S2; no murmur Extremities: + edema (Trace edema bilaterally) Gastrointestinal (Abdomen): Inspection/Auscultation: normal bowel sounds; abdomen not distended Percussion/Palpation: abdomen soft; abdomen nontender Musculoskeletal: Has osteoarthritis but no acute arthritis of any joint. Movement of the right lower extremity reduced pain in the right hip Neurologic: normal touch/pain/proprioception and moves all extremities; no focal motor deficits Lymphatic: no cervical or axillary lymphadenopathy Results & Data Results & Data Vital Signs (Past 12 Hours) Vital Signs Temp Pulse Pulse Resp BP BP Pulse Ox 01/17/25 19:33 102 H 18 153/81 H 98 01/17/25 18:44 01/17/25 18:26 20 168/78 H 96 01/17/25 18:08 163/86 H 97 01/17/25 18:00 89 20 01/17/25 17:51 91 H 16 01/17/25 17:36 96 H 19 96 01/17/25 17:31 168/90 H 01/17/25 17:30 88 01/17/25 17:26 36.6 C 88 16 159/83 H 100 01/17/25 17:26 36.6 C 88 16 159/83 H 100 01/17/25 17:17 O2 Del Method O2 Flow Rate 01/17/25 19:33 Room Air 01/17/25 18:44 Room Air 01/17/25 18:26 Room Air 01/17/25 18:08 Room Air 01/17/25 18:00 01/17/25 17:51 01/17/25 17:36 Room Air 01/17/25 17:31 01/17/25 17:30 01/17/25 17:26 Room Air 0 01/17/25 17:26 Room Air 01/17/25 17:17 Room Air Laboratory Results Short CBC 01/17/25 Range/Units 15:51 WBC 16.85 H (4.8-10.8) K/ul Hgb 13.5 (12.0-16.0) g/dl Hct 39.8 (37.0-47.0) % Plt Count 241 (130-400) K/uL BMP 01/17/25 15:51 Sodium 141 Potassium 3.1 L Chloride 106 Carbon Dioxide 27 BUN 28 H Creatinine 0.66 Glucose 148 H Calcium 10.7 H Cardiac Enzymes 01/17/25 Range/Units 15:51 Total Creatine Kinase 178 (26-192) U/L Liver Function 01/17/25 Range/Units 15:51 Total Bilirubin 1.0 (0.2-1.0) mg/dl AST 33 (13-39) U/L ALT 25 (7-52) U/L Alkaline Phosphatase 82 (34-104) U/L Albumin 3.1 L (3.4-5.0) gm/dl Urine 01/17/25 Range/Units 19:25 Urine Color Dark Yellow Urine Appearance Clear (Clear) Urine pH 6.0 (4.5-7.5) Ur Specific [place] 1.031 H (1.000-1.030) Urine Protein 2+ H (Negative) Urine Glucose (UA) Trace H (Negative) Diagnostic Findings Laboratory Results WBC 16.85 K/ul (4.8-10.8) H 01/17/25 15:51 RBC 4.45 M/uL (4.20-5.40) 01/17/25 15:51 Hgb 13.5 g/dl (12.0-16.0) 01/17/25 15:51 Hct 39.8 % (37.0-47.0) 01/17/25 15:51 MCV 89.4 fL (80.0-100.0) 01/17/25 15:51 MCH 30.3 pg (25.0-34.0) 01/17/25 15:51 MCHC 33.9 g/dL (32.0-36.0) 01/17/25 15:51 RDW Std Deviation 45.9 fL (36.4-46.3) 01/17/25 15:51 RDW Coeff of [place] 14.0 % (11.5-14.5) 01/17/25 15:51 Plt Count 241 K/uL (130-400) 01/17/25 15:51 MPV 11.4 fL (9.4-12.4) 01/17/25 15:51 Immature Gran % (Auto) 0.9 % 01/17/25 15:51 Neut % (Auto) 86.7 % 01/17/25 15:51 Lymph % (Auto) 5.2 % 01/17/25 15:51 [place] % (Auto) 7.1 % 01/17/25 15:51 Eos % (Auto) 0.0 % 01/17/25 15:51 Baso % (Auto) 0.1 % 01/17/25 15:51 Neut # (Auto) 14.61 K/uL (1.40-6.50) H 01/17/25 15:51 Lymph # (Auto) 0.87 K/uL (1.20-3.40) L 01/17/25 15:51 [place] # (Auto) 1.19 K/uL (0.11-0.59) H 01/17/25 15:51 Eos # (Auto) 0.00 K/uL (0.00-0.50) 01/17/25 15:51 Baso # (Auto) 0.02 K/uL (0.00-0.20) 01/17/25 15:51 Immature Gran # (Auto) 0.16 K/uL (0.01-0.20) 01/17/25 15:51 PT 10.5 Seconds (9.0-12.0) 01/17/25 15:51 INR 1.0 (0.9-1.1) 01/17/25 15:51 APTT 27 Seconds (21-31) 01/17/25 15:51 PTT Ratio 1.0 01/17/25 15:51 Sodium 141 mmol/L (136-145) 01/17/25 15:51 Potassium 3.1 mmol/L (3.5-5.1) L 01/17/25 15:51 Chloride 106 mmol/L (98-107) 01/17/25 15:51 Carbon Dioxide 27 mmol/L (21-32) 01/17/25 15:51 Anion Gap 8 (3-11) 01/17/25 15:51 BUN 28 mg/dl (6-23) H 01/17/25 15:51 Creatinine 0.66 mg/dl (0.6-1.2) 01/17/25 15:51 Est Cr Clr Drug Dosing 65.2 ml/min 01/17/25 15:51 eGFR 87.53 01/17/25 15:51 BUN/Creatinine Ratio 42.4 (10-20) H 01/17/25 15:51 Glucose 148 mg/dl (70-99(Fasting)) H 01/17/25 15:51 Lactate 1.8 mmol/L (0.4-2.0) 01/17/25 15:51 Calcium 10.7 mg/dl (8.6-10.3) H 01/17/25 15:51 Magnesium 2.0 mg/dl (1.7-2.4) 01/17/25 15:51 Total Bilirubin 1.0 mg/dl (0.2-1.0) 01/17/25 15:51 AST 33 U/L (13-39) 01/17/25 15:51 ALT 25 U/L (7-52) 01/17/25 15:51 Alkaline Phosphatase 82 U/L (34-104) 01/17/25 15:51 Total Creatine Kinase 178 U/L (26-192) 01/17/25 15:51 Troponin I High Sens 654.7 pg/ml (0-14) H* 01/17/25 15:51 Total Protein 5.9 gm/dl (6.0-8.3) L 01/17/25 15:51 Albumin 3.1 gm/dl (3.4-5.0) L 01/17/25 15:51 Globulin 2.8 gm/dl (2.5-4.0) 01/17/25 15:51 Albumin/Globulin Ratio 1.1 (0.9-2) 01/17/25 15:51 Lipase < 3 U/L (11-82) L 01/17/25 15:51 Procalcitonin 0.09 ng/ml (0-0.5) 01/17/25 15:51 TSH 1.838 uIu/ml (0.300-4.500) 01/17/25 15:51 Urine Color Dark Yellow 01/17/25 19: Urine Appearance Clear (Clear) 01/17/25 19: Urine pH 6.0 (4.5-7.5) 01/17/25: Ur Specific [place] 1.031 (1.000-1.030) H 01/17/25 19: Urine Protein 2+ (Negative) H 01/17/25: Urine Glucose (UA) Trace (Negative) H 01/17/25 19: Urine Ketones 3+ (Negative) H 01/17/25: Urine Blood Negative (Negative) 09/10/25 19:25 Urine Nitrite Negative (Negative) 01/17/25 19:25 Urine Bilirubin Negative (Negative) 01/17/25 19:25 Urine Urobilinogen Negative (Negative) 01/17/25 19:25 Ur Leukocyte Esterase Negative (Negative) 01/17/25 19:25 Urine WBC (Auto) 0-5 /hpf (0-5) 01/17/25 19:25 Urine RBC (Auto) 0-2 /hpf (0-2) 01/17/25 19:25 U Hyaline Cast (Auto) 0-2 /lpf (0-2) 01/17/25 19:25 U Epithel Cells (Auto) 3-5 /hpf (0-2) H 01/17/25 19:25 Urine Bacteria (Auto) None Seen (None Seen) 01/17/25 19: Urine Comment 01/17/25 19: Impressions Chest X-Ray 01/17/25 17:09 Clinical History: Trauma Technique: A frontal view of the chest was obtained Findings: There are no confluent pulmonary infiltrates. The heart size is within normal limits. No pleural effusion or pneumothorax is seen. There is no definite pulmonary nodule. No fracture is noted. There is thoracic scoliosis and degenerative disc disease Impression: No active disease Electronically signed by Shalom Hameed 01-17-2025 6:[address] 01/17/25 17:10 Clinical history: Fall Technique: Axial computed tomography images were obtained of the cervical spine without intravenous contrast. Sagittal and coronal reconstructions were obtained Findings: No fracture is identified. No listhesis is seen. No focal osseous lesion is evident. There is atlantoaxial osteoarthritis At C2-3, no disc herniation is identified. There is no spinal stenosis. The neural foramen are patent At C3-4, there is a mild disc bulge without spinal stenosis. There is left neural foramen narrowing that may affect the left C4 nerve root At C4-5, there is mild spinal stenosis due to a disc bulge and a left paracentral disc protrusion. There is right neural foramen narrowing that may affect the right C5 nerve root At C5-6, there is spinal stenosis due to a disc bulge. There is bilateral neural foramen narrowing that may affect the exiting C6 nerve roots At C6-7, there is a disc bulge without clear spinal cord deformity. There is left neural foramen narrowing that may affect the left C7 nerve root At C7-T1, there is a mild disc bulge without spinal stenosis. The neural foramen are patent The lung apices appear clear. The visualized soft tissues of the neck appear unremarkable. No foreign body is seen Impression: 1. No definite cervical spine fracture 2. Spinal stenosis at C4-5 and C5-6 3. Left C3-4, right C4-5, bilateral C5-6, and left C6-7 neural foramen narrowing. This may affect the exiting nerve roots Electronically signed by Shalom Hameed 01-17-2025 7:[address] 01/17/25 17:10 Clinical History: Fall Technique: Axial computed tomography images were obtained of the brain without intravenous contrast. Findings: There is diffuse cerebral atrophy, within expected limits for the patient's age. Areas of decreased attenuation are seen within the periventricular white matter, likely representing chronic small vessel ischemic disease. There is no definite sign of acute or old infarction. No intracranial hemorrhage is evident. No definite mass lesion is seen on this noncontrast examination. There is no midline shift or other form of herniation. No hydrocephalus is seen. No fracture is identified. The orbits and the visualized paranasal sinuses appear unremarkable. The mastoid air cells appear clear. Impression: 1. Cerebral atrophy and chronic small vessel ischemic disease 2. Otherwise unremarkable noncontrast CT of the brain Electronically signed by Shalom Hameed 01-17-2025 6:47 PM Knee X-Ray 01/17/25 17:21 Clinical History: Pain. 3 views of the right knee are submitted for review. Findings: No fracture or dislocation is seen. There is joint space narrowing in the medial and lateral compartments. There are osteophytes in all 3 compartments. No other osseous abnormality is identified. There are no radiopaque foreign bodies. Impression: Severe right knee osteoarthritis Electronically signed by Shalom Hameed 01-17-2025 6:17 PM Femur X-Ray 01/17/25 19:37 Frontal and lateral views of the right femur. No comparison Impression Subtle luce obliquely oriented lucency in the intertrochanteric region seen on the frontal image and again faintly visualized on the crosstable lateral suggesting a nondisplaced intertrochanteric fracture within same. CT of the right hip recommended for further evaluation. Advanced degenerative changes of the right knee. Electronically signed by Moses Emerson 01-17-2025 8:49 PM Code Status & VTE Plan VTE Prophylaxis Plan VTE Prophylaxis will be ordered: Yes
--- NOTE | 2025-01-17 20:49 | XRay Report ---
Frontal and lateral views of the right femur. No comparison Impression Subtle luce obliquely oriented lucency in the intertrochanteric region seen on the frontal image and again faintly visualized on the crosstable lateral suggesting a nondisplaced intertrochanteric fracture within same. CT of the right hip recommended for further evaluation. Advanced degenerative changes of the right knee. Electronically signed by Moses Emerson 01-17-2025 8:49 PM
--- NOTE | 2025-01-17 21:05 | Orthopedic Consultation ---
Date of Consultation January 17, 2025 Assessment & Plan (1) Closed right hip fracture: (2) Elevated troponin: (3) Osteoarthritis: (4) Macular degeneration of left eye: (5) Depression: (6) Anxiety: (7) Cancer: (8) Hypothyroidism: (9) Hypertension: (10) Hyperlipidemia: (11) Asthma: Plan Mikaela is an 84-year-old female who presents to the emergency department after being found down by family members. Reportedly she must of fallen at some point yesterday. She does not remember the fall. During this fall, she does appear to have sustained a closed, traumatic, minimally displaced right hip fracture. Based on the x-rays of the femur, this appears to be consistent with a basicervical femoral neck fracture versus an intertrochanteric hip fracture. I do long discussion the patient and her family guarding the nature of this injury. Discussed in great detail the pathoanatomy, pathophysiology and treatment options. I expressed to them that in order to appropriately identify and plan for surgical management, better classification of the fracture is necessary. I have ordered a CT scan of the pelvis to help identify appropriate treatment method. Given that this either represents a basicervical fracture or an intertrochanteric hip fracture, I do think that the patient will require open versus closed reduction and cephalomedullary nailing of her right hip. I did discuss with her both operative and nonoperative care for this injury. I expressed to her that there are risks with operative management which include but are not limited to loss of life/limb, DVT/PE, nonunion, malunion, hardware complication, hardware failure, need for additional surgery, infection, wound healing complications, iatrogenic injury to bone/nerve/tendon/vessel. Expressed to her that the alternative to surgical management be for nonoperative care. Nonoperative care I believe carries with it a very high risk of nonunion and malunion as well as continued pain. With nonoperative care, the patient would likely be on bedrest for up to 6 weeks while her fracture begins to heal and with this bed rest, I suspect that she would be at very high risk of developing complications of immobilization such as DVT/PE, pneumonia, ulcers. I did discuss with the patient and her family that hip fractures in elderly patients often times are a "harbinger of worsening state," I expressed to them in no uncertain terms that these fractures occur in patients who are nearing the end of their life. I expressed to them that this fracture represents an osteoporotic type fracture and the patient does have osteoporosis. I expressed to her that she is at risk of further fractures as well and she expressed understanding. Finally, I expressed to her that hip fractures are quite a serious injury that occurred in elderly patients and often times result in significant impairments in mobility and functionality. I expressed to her that given the fact that she ambulates currently with a cane or a walker, I suspect that she will be using a walker most of the time and may even require wheelchair for longer periods even after surgery. Patient expressed understanding to this. At this time, CT scan of the pelvis is pending. She will be admitted to the medical team and they will be following her troponins. Once she is deemed stable from a medical standpoint to proceed with operative management, we will proceed to the OR. Please keep the patient n.p.o. after midnight tonight. For now she is nonweightbearing on the right lower extremity. History of Present Illness Reason for Consultation: right hip pain History of Present Illness 84-year-old female with significant past medical history of hypertension, generalized osteoarthritis, history of renal cancer, hyperlipidemia, moderate persistent asthma, mild depression, hypertensive kidney disease stage III 3A and also personal history of falls apparently was found on floor today by the family members. She cannot remember falling the evening before and apparently she was on floor probably the entire night and could not manage to get up. She cannot remember how did she fall and he did not have any warning before the fall. Denies any recent fever and/or chills and denies any problem with urine and bowel habits. She complains of pain in the right hip with any movement of the lower extremi ties. Denies any chest pain, palpitation or shortness of breath,. She was noted to have right hip fracture and also her troponin was elevated with increasing white count as well. She was started with empiric Zosyn and was admitted to medical telemetry unit for continuation of care. on my evaluation, the patient complains primarily of right hip pain. She denies any pain in her left lower extremity. She has pain in her bilateral knees but states this is chronic. She has no pain in her bilateral upper extremities. Allergies Allergy/AdvReac Type Severity Reaction Status Date / Time Iodinated Contrast Media Allergy Intermediate HIVES,RASH Verified 09/20/18 10:03 [Iodinated Contrast- Oral and IV Dye] Home Medications Medication Instructions Recorded Confirmed Type aspirin 81 mg tablet,delayed 81 mg PO QAM 08/23/18 01/17/25 History release (Mateus Low Dose Aspirin) hydrochlorothiazide 25 mg tablet 25 mg PO QDL 08/23/18 01/17/25 History latanoprost 0.005 % eye drops 1 drp OPB HS 08/23/18 01/17/25 History losartan 100 mg tablet 100 mg PO QPM 08/23/18 01/17/25 History omeprazole magnesium 20 mg 20 mg PO QAM 08/23/18 01/17/25 History tablet,delayed release (Prilosec OTC) rizatriptan 10 mg disintegrating 10 mg PO DAILY PRN Migraine 08/23/18 01/17/25 History tablet (Maxalt-PROGRESSIVE CARE UNIT REGISTERED NURSE) Headache simvastatin 40 mg tablet 40 mg PO PM 08/23/18 01/17/25 History sulindac 150 mg tablet 150 mg PO BID 08/23/18 01/17/25 History temazepam 15 mg capsule 15 mg PO HS PRN Sleep 08/23/18 01/17/25 History venlafaxine 37.5 mg tablet 37.5 mg PO QPM 08/23/18 01/17/25 History vit C 50 mg-E 15 unit-zinc cit 4.5 1 tab PO QDL 08/23/18 01/17/25 History mg-lutein 2.5 mg-zeaxan chew tablet ([facility]) vitamin E 268 mg (400 unit) capsule 400 unit PO QAM 08/23/18 01/17/25 History cinacalcet 30 mg tablet 30 mg PO QAM 01/17/25 01/17/25 History duloxetine 60 mg capsule,delayed 120 mg PO QAM 01/17/25 01/17/25 History release famotidine 20 mg tablet 20 mg PO HS 01/17/25 01/17/25 History metoprolol succinate 100 mg 100 mg PO QAM 01/17/25 01/17/25 History tablet,extended release 24 hr pregabalin 50 mg capsule 50 mg PO TID 01/17/25 01/17/25 History zafirlukast 20 mg tablet 20 mg PO QAM 01/17/25 01/17/25 History Patient History Medical History (Updated 01/17/25 @ 20:33 by Jason Brink MD) Osteoarthritis Macular degeneration of left eye Depression Anxiety Cancer kidney cancer Hypothyroidism Hypertension Hyperlipidemia Seasonal allergies Environmental allergies Asthma Surgical History Hx of cataract extraction right Hx of cholecystectomy History of ovarian cystectomy History of tonsillectomy and adenoidectomy Hx of appendectomy Hx of total hysterectomy History of pancreatic surgery cyst removed Hx of partial thyroidectomy right side History of right nephrectomy Social History Smoking Status: Never smoker Hx Alcohol Use: Yes Alcohol type: wine Hx Substance Use: No Preferred Language: Turkish Communication Ability: Effective Beliefs That Will Affect Care: None Current Living Situation: Spouse Feels Safe at Home: Yes Assistive Devices: Cane and Glasses Review of Systems Review of Systems: All systems reviewed & are unremarkable except as noted in HPI & below Physical Exam Physical Exam: Right hip: No open wounds appreciated on the right hip. Pain with logroll. Pain with heel strike. Mild tenderness palpation about the knee. Nontender in the ankle or the foot. Foot warm and well-perfused. Demonstrates active EHL and FHL functi on. Results & Data Vital Signs (Past 12 Hours) Vital Signs Temp Pulse Pulse Resp BP BP Pulse Ox 01/17/25 20:30 90 18 140/93 96 01/17/25 19:33 102 H 18 153/81 H 98 01/17/25 18:44 01/17/25 18:26 20 168/78 H 96 01/17/25 18:08 163/86 H 97 01/17/25 18:00 89 20 01/17/25 17:51 91 H 16 01/17/25 17:36 96 H 19 96 01/17/25 17:31 168/90 H 01/17/25 17:30 88 01/17/25 17:26 36.6 C 88 16 159/83 H 100 01/17/25 17:26 36.6 C 88 16 159/83 H 100 01/17/25 17:17 O2 Del Method O2 Flow Rate 01/17/25 20:30 Room Air 01/17/25 19:33 Room Air 01/17/25 18:44 Room Air 01/17/25 18:26 Room Air 01/17/25 18:08 Room Air 01/17/25 18:00 01/17/25 17:51 01/17/25 17:36 Room Air 01/17/25 17:31 01/17/25 17:30 01/17/25 17:26 Room Air 0 01/17/25 17:26 Room Air 01/17/25 17:17 Room Air Diagnostic Findings x-rays of the pelvis, right femur, left femur, bilateral knees obtained today were personally reviewed and interpreted. These demonstrate findings concerning for a minimally displaced basicervical right femoral neck fracture versus intertrochanteric hip fracture.
[2025-01-17] MEDS: POTASSIUM CHLORIDE / WTR 10 MEQ/100 ML PLCT IV SCH (21:14)
[2025-01-17] MEDS: POTASSIUM CHLORIDE CRTAB 20 MEQ TABCR PO STA (21:14)
--- NOTE | 2025-01-17 22:51 | XRay Report ---
Exam(s): XR PELVIS, 1-2 views EXAM: XR Pelvis, 1 or 2 Views CLINICAL HISTORY: Reason for exam: fall, pain. TECHNIQUE: Frontal view of the pelvis. COMPARISON: 01/17/2025 FINDINGS: Bones/joints: No acute fracture. No dislocation. Soft tissues: Unremarkable. IMPRESSION: No acute osseous findings. Electronically signed by: Samantha Helton M.D. 01/17/25 22:50 PM
--- NOTE | 2025-01-18 01:11 | CT Scan Report ---
EXAM: CT pelvis wo con CLINICAL HISTORY: eval right hip TECHNIQUE: Contiguous axial CT images of pelvis were obtained without intravenous contrast. Coronal and sagittal reconstructions were likewise performed and indicated to increase the sensitivity for detecting clinically relevant pathology. CT scan was performed according to ALARA (as low as reasonably achievable). COMPARISON: None. FINDINGS: Linear mildly displaced fracture of neck - intertrochanteric region of right femur. No destructive osseous lesion. The visualized muscles and tendons appear grossly unremarkable. No cortical destruction to suggest osteomyelitis. No abscess formation. No significant joint effusion. There are no soft tissue masses. Normal subcutaneous adipose space. IMPRESSION: 1. Linear mildly displaced fracture of neck - intertrochanteric region of right femur. Electronically signed by Antwon Barnes 01-18-2025 01:11 AM
[2025-01-18] MEDS ORDERED: RIZATRIPTAN BENZOATE 10 MG TAB PO PRN (01:15)
[2025-01-18] MEDS ORDERED: LORazepam 1 MG TAB PO PRN (01:16)
[2025-01-18] MEDS: PREGABALIN 50 MG CAP PO SCH (01:33)
[2025-01-18] MEDS: PIPERACILLIN/TAZOBACTAM 4.5 GM/100 ML BAG IV SCH (01:33)
[2025-01-18] MEDS: LOSARTAN POTASSIUM 50 MG TAB PO SCH (01:33)
[2025-01-18] MEDS: FAMOTIDINE 20 MG TAB PO SCH (01:33)
[2025-01-18] MEDS: SIMVASTATIN 40 MG TAB PO SCH (01:34)
[2025-01-18] MEDS: VENLAFAXINE HCL 37.5 MG TAB PO SCH (01:34)
[2025-01-18] MEDS: LATANOPROST 0.005% OP SOLN 2.5 ML BTL OPB SCH (01:35)
--- NOTE | 2025-01-18 01:52 | CT Scan Report ---
EXAM: CT hip RT wo con CLINICAL HISTORY: Right femur fracture. TECHNIQUE: Multiple, contiguous, nonenhanced CT scans of the right hip joint were obtained in the axial plane with multiplanar reconstructions. One of the following dose reduction techniques was utilized for this examination: automated exposure control, adjustment of the mA and/or kV according to patient size, and use of iterative reconstruction. COMPARISON: No prior studies for comparison. A recent X-ray of the pelvis on 01/17/2025 16:18:00 FLIGHT OPERATIONS INSPECTOR is reviewed. FINDINGS: Bones: Diffuse osteoporotic changes of the examined bone are seen. A partially impacted comminuted fractures seen at the neck and intertrochanteric region of the right femur. No underlying pathological osseous lesions are identified. No other fractures are seen. Joints: Normal joint spaces of the right hip joint are noted. No evidence of intra-articular loose bodies is seen. No significant degenerative changes are present apart from minimal osteophyte formation. Soft Tissues: Edema and stranding of the soft tissues around the right hip joint are seen. Additional data: Edema is noted at the presacral fat. Degenerative changes are noted at the visualized part of the lower lumbar spine. IMPRESSION: 1. A partially impacted comminuted fractures seen at neck and intertrochanteric region of the right femur associated with edema and stranding of surrounding soft tissue around proximal femur. 2. Diffuse osteoporotic changes of the examined bone are seen. Electronically signed by Christopher Leonard 01-18-2025 01:51 AM
--- NOTE | 2025-01-18 02:30 | Communication Note ---
Date of Service: January 18, 2025 Patient witnessed by RN to aspirate on pills with water. No cough symptoms currently. Tender abdominal exam as per RN. CT abdomen pelvis Colonic fecal and gaseous distension, predominantly rectum. Mild concentric wall thickening is noted involving distal rectum with adjacent fat stranding/thickening (predominantly in the presacral space)- possibility of inflammatory changes/stercoral colitis Right nephrectomy status. No other intra-abdominal abnormalities seen. A partially impacted comminuted fractures seen at neck and intertrochanteric region of the right femur associated with edema and stranding of surrounding soft tissue around proximal femur. AP Aspiration risk Stercoral colitis on CT, possible etiology of leukocytosis on admission blood work N.p.o. for now NURSE ADMINISTRATOR eval, aspiration precautions Zosyn for stercoral colitis
[2025-01-18] MEDS: ACETAMINOPHEN 1,000 MG/100 ML VIAL IV STA (03:51)
--- NOTE | 2025-01-18 04:05 | CT Scan Report ---
EXAM: CT abd pelvis wo con CLINICAL HISTORY: abd pain TECHNIQUE: Contiguous axial images were obtained from the level of the diaphragm to the pubic symphysis without intravenous or oral contrast. Coronal and sagittal reconstructions were likewise performed and indicated to increase the sensitivity for detecting clinically relevant pathology. CT scan was performed according to ALARA (as low as reasonably achievable). COMPARISON: None. FINDINGS: The visualized lung bases show diffuse interlobular and intralobularseptal thickening- possibility of interstitial lung disease likely - clinical correlation suggested. Evaluation of the abdominal and pelvic visceral organs is limited without intravenous contrast. The unenhanced liver, spleen, pancreas, and adrenal glands are grossly unremarkable. The gallbladder is surgically removed. Right nephrectomy status. Left kidney is normal in size and attenuation without obvious calcification. There is no hydronephrosis or perinephric stranding. The ureters are normal in caliber. No adenopathy or fluid collections are seen. No evidence of focal or diffuse bowel wall thickening or evidence of bowel obstruction is seen. No imaging evidence of appendicitis. The aorta is normal in caliber. The urinary bladder is minimally distended with Atwood's catheter in situ. Pelvic viscera are grossly unremarkable. No aggressive appearing osseous lesions are identified. Diffuse atherosclerotic calcification is noted involving aorta iliac arteries. Colonic fecal and gaseous distension, predominantly rectum. Mild concentric wall thickening is noted involving distal rectum with adjacent fat stranding/thickening (predominantly in the presacral space)- possibility of inflammatory changes/stercoral colitis Degenerative changes involving spine in the form of multilevel marginal osteophytes, disc space reduction and facetal arthrosis. A partially impacted comminuted fractures seen at neck and intertrochanteric region of the right femur associated with edema and stranding of surrounding soft tissue around proximal femur. IMPRESSION: Colonic fecal and gaseous distension, predominantly rectum. Mild concentric wall thickening is noted involving distal rectum with adjacent fat stranding/thickening (predominantly in the presacral space)- possibility of inflammatory changes/stercoral colitis Right nephrectomy status. No other intra-abdominal abnormalities seen. A partially impacted comminuted fractures seen at neck and intertrochanteric region of the right femur associated with edema and stranding of surrounding soft tissue around proximal femur. Electronically signed by Antwon Barnes 01-18-2025 04:05 AM
[2025-01-18 08:03] LABS: Hematocrit (blood only) 36.2 % (37.0-47.0); Hemoglobin 12.3 g/dl (12.0-16.0); Immature Granulocytes # (auto) 0.09 K/uL (0.01-0.20); Immature Granulocytes % (auto) 0.6 %; Mean Corpuscular Hemoglobin 31.1 pg (25.0-34.0); Mean Corpuscular Volume 91.4 fL (80.0-100.0); Platelet Count 209 K/uL (130-400); RDW Standard Deviation 47.1 fL (36.4-46.3); Red Blood Count 3.96 M/uL (4.20-5.40); White Blood Count 14.55 K/ul (4.8-10.8)
[2025-01-18 08:28] LABS: Anion Gap 7.0 (3-11); Calcium 10.4 mg/dl (8.6-10.3); Carbon Dioxide 23.0 mmol/L (21-32); Chloride 113.0 mmol/L (98-107); Magnesium 2.0 mg/dl (1.7-2.4); Potassium 3.6 mmol/L (3.5-5.1); Sodium 143.0 mmol/L (136-145)
[2025-01-18 08:33] LABS: Blood Urea Nitrogen 31.0 mg/dl (6-23); Creatinine Clr Calc Pharmacy 59.2 ml/min; Glucose 126.0 mg/dl (70-99(Fasting))
[2025-01-18] MEDS: METOPROLOL SUCC 50MG EXT REL TAB PO SCH (08:34)
[2025-01-18] MEDS: CINACALCET HCL 30 MG TAB PO SCH (08:36)
[2025-01-18] MEDS: TOCOPHERYL, DL-ALPHA 400 UNITS 180 MG CAP PO SCH (08:36)
--- NOTE | 2025-01-18 08:47 | Hospitalist Progress Note ---
Date of Service January 18, 2025 Assessment & Plan (1) Closed right hip fracture: (2) Demand ischemia of myocardium: (3) Hypokalemia: (4) Fall from standing: (5) Stercoral colitis: (6) Osteoarthritis: (7) Hypertension: (8) Hypothyroidism: (9) History of kidney cancer: Plan Patient 84-year-old female with a right hip fracture after a fall from standing. Leukocytosis most likely due to inflammatory response from lying on the floor and hip fracture, improving with supportive care Patient reports 2 to 3-week history of significant constipation, suspect findings on CT scan reflect some mild sterocoral colitis. Patient will need a bowel regimen. Low suspicion for overwhelming infection/sepsis. Can narrow antibiotics Troponins reviewed, suspect demand ischemia from trauma of fall, fracture, lying on the floor the patient has no symptoms associated with acute coronary syndrome. Will continue supportive care Potassium has been replaced, continue to monitor electrolytes and renal function Continue other outpatient medications as ordered Pain control Anticipate need for therapies after surgical repair Case management for disposition planning, anticipate patient will need rehab prior to returning home Communication with orthopedic team, informed them that patient is medically maximized at this point. The benefits of going for repair of her for hip fracture early far outweigh any risks at this point. Plan for surgical repair today Admission and Anticipated Discharge Date Admission Date: January 17, 2025 Subjective Events of overnight noted. Patient this morning denies any chest pain, no shortness of breath. Never had any real issues with swallowing in the past. States that she has minimal pain in the hip. Actually able to relate a good history since her hospitalization. She states that she has been dealing with some constipation for the last couple weeks. Denies any real significant abdominal pain or pelvic pain. No fever or chills. Physical Exam Physical Exam: Constitutional: Alert, nontoxic, no acute distress HEENT: Mucous membranes moist. Lungs: Clear to auscultation, decreased, no wheezes rales or rhonchi CV: S1-S2, regular Abdomen: Soft, nontender, nondistended, no guarding, no rigidity Extremities: No significant edema Musculoskeletal: Contusion right shoulder, Mild tenderness to palpation, contusion right hip, mild tenderness Neuro: No focal deficits, generally weak Psych: Cooperative, normal mood Results & Data Results & Data Vital Signs (Past 12 Hours) Vital Signs Temp Pulse Pulse Pulse Resp BP BP 01/18/25 07:51 36.5 C 82 18 132/73 01/18/25 02:10 36.7 C 97 H 16 149/71 H 01/18/25 00:51 01/18/25 00:51 36.4 C L 98 H 18 152/77 H 01/18/25 00:28 98 H 01/17/25 23:13 01/17/25 23:01 36.9 C 105 H 20 147/90 H 01/17/25 22:00 87 20 140/75 01/17/25 21:00 87 20 117/66 Pulse Ox O2 Del Method 01/18/25 07:51 96 Room Air 01/18/25 02:10 95 Room Air 01/18/25 00:51 Room Air 01/18/25 00:51 95 Room Air 01/18/25 00:28 01/17/25 23:13 Room Air 01/17/25 23:01 98 Room Air 01/17/25 22:00 94 Room Air 01/17/25 21:00 96 Room Air Diagnostic Findings Reviewed imaging, laboratory and diagnostic studies. Pertinent findings as below. Reviewed imaging reports Reviewed CT of the abdomen pelvis, based on patient's history low suspicion for significant infectious colitis, suspect findings seen in the colon are due to her chronic constipation recently. WBCs 14.5, improved Hemoglobin 12.3, overall stable Sodium 143 Potassium 3.6, improved Chloride at 113 BUN 31 Creatinine 0.72 Calcium 10.4 Procalcitonin 0.09 Troponins reviewed, trending down
[2025-01-18] MEDS: POTASSIUM CHLORIDE CRTAB 20 MEQ TABCR PO STA (08:56)
[2025-01-18] MEDS: SODIUM CHLORIDE 0.9% 1,000 ML IV SCH (09:58)
[2025-01-18] MEDS ORDERED: ONDANSETRON INJ 2 MG/ML 2 ML VIAL ONE (10:10)
[2025-01-18] MEDS ORDERED: PROPOFOL IV EMULSION 10 MG/ML 20 ML VIAL IV ONE (10:10)
[2025-01-18] MEDS ORDERED: LIDOCAINE 2% 2 ML VIAL/AMP(20MG/ML) INFIL ONE (10:10)
--- NOTE | 2025-01-18 10:29 | Anesthesiology Consultation ---
Date of Service January 18, 2025 Assessment & Plan Chart Review Chart Review: Acceptable Risk for Surgery Consults Requested none History Surgery Operation Date: 01/18/25 07:05 Proposed Procedures p Trochanteric Nail Right - Storm Padgett DO Height/Weight Height: 5 ft 3 in Weight: 77.1 kg Allergies Allergy/AdvReac Type Severity Reaction Status Date / Time Iodinated Contrast Media Allergy Intermediate HIVES,RASH Verified 09/20/18 10:03 [Iodinated Contrast- Oral and IV Dye] Medications Home Medications Medication Instructions Recorded Confirmed Last Taken aspirin 81 mg tablet,delayed 81 mg PO QAM 08/23/18 01/17/25 01/16/25 release (Mateus Low Dose Aspirin) hydrochlorothiazide 25 mg tablet 25 mg PO QDL 08/23/18 01/17/25 01/16/25 latanoprost 0.005 % eye drops 1 drp OPB HS 08/23/18 01/17/25 01/16/25 losartan 100 mg tablet 100 mg PO QPM 08/23/18 01/17/25 01/16/25 omeprazole magnesium 20 mg 20 mg PO QAM 08/23/18 01/17/25 01/16/25 tablet,delayed release (Prilosec OTC) rizatriptan 10 mg disintegrating 10 mg PO DAILY PRN Migraine 08/23/18 01/17/25 09/19/18 tablet (Maxalt-RADIOLOGY SCHEDULER) Headache simvastatin 40 mg tablet 40 mg PO PM 08/23/18 01/17/25 01/16/25 sulindac 150 mg tablet 150 mg PO BID 08/23/18 01/17/25 01/16/25 temazepam 15 mg capsule 15 mg PO HS PRN Sleep 08/23/18 01/17/25 09/19/18 venlafaxine 37.5 mg tablet 37.5 mg PO QPM 08/23/18 01/17/25 01/16/25 vit C 50 mg-E 15 unit-zinc cit 4.5 1 tab PO QDL 08/23/18 01/17/25 01/16/25 mg-lutein 2.5 mg-zeaxan chew tablet ([employer] [facility]) vitamin E 268 mg (400 unit) capsule 400 unit PO QAM 08/23/18 01/17/25 01/16/25 cinacalcet 30 mg tablet 30 mg PO QAM 01/17/25 01/17/25 01/16/25 duloxetine 60 mg capsule,delayed 120 mg PO QAM 01/17/25 01/17/25 01/16/25 release famotidine 20 mg tablet 20 mg PO HS 01/17/25 01/17/25 01/16/25 metoprolol succinate 100 mg 100 mg PO QAM 01/17/25 01/17/25 01/16/25 tablet,extended release 24 hr pregabalin 50 mg capsule 50 mg PO TID 01/17/25 01/17/25 01/16/25 zafirlukast 20 mg tablet 20 mg PO QAM 01/17/25 01/17/25 01/16/25 Active Medications Generic Name Dose Route Start Last Admin Trade Name Freq PRN Reason Stop Dose Admin Cinacalcet 30 mg 01/18/25 09:00 01/18/25 08:36 Cinacalcet Hcl 30 Mg Tab PO 02/17/25 08:59 Not Given QAM JJ Duloxetine HCl 120 mg 01/18/25 09:00 01/18/25 08:36 Duloxetine Hcl 60 Mg Cap PO 02/17/25 08:59 Not Given QAM JJ Famotidine 20 mg 01/18/25 00:13 01/18/25 01:33 Famotidine 20 Mg Tab PO 02/17/25 00:12 20 mg HS JJ Administration Sodium Chloride 1,000 mls @ 80 mls/hr 01/18/25 09:00 01/18/25 09:58 Nss IV 01/21/25 08:59 80 mls/hr .[id number] JJ Administration Latanoprost 1 drops 01/18/25 00:13 01/18/25 01:35 Latanoprost 0.005% Op Soln 2.5 Ml Btl OPB 02/17/25 00:12 1 drops HS JJ Administration Losartan Potassium 100 mg 01/18/25 00:13 01/18/25 01:33 Losartan Potassium 50 Mg Tab PO 02/17/25 00:12 100 mg QPM JJ Administration Metoprolol Succinate 100 mg 01/18/25 09:00 01/18/25 08:34 Metoprolol Succ 50mg Ext Rel Tab PO 02/17/25 08:59 100 mg QAM JJ Administration Miscellaneous 1 each 01/18/25 08:00 01/18/25 08:29 Zafirlukast - Order Awaiting Action N/A 02/17/25 07:59 Not Given QS JJ Pantoprazole Sodium 40 mg 01/18/25 09:00 01/18/25 08:36 Pantoprazole 40 Mg Tab PO 02/17/25 08:59 Not Given QAM JJ Pregabalin 50 mg 01/18/25 00:13 01/18/25 08:34 Pregabalin 50 Mg Cap PO 02/17/25 00:12 50 mg TID JJ Administration Simvastatin 40 mg 01/18/25 00:13 01/18/25 01:34 Simvastatin 40 Mg Tab PO 02/17/25 00:12 40 mg PM JJ Administration Venlafaxine HCl 37.5 mg 01/18/25 00:13 01/18/25 01:34 Venlafaxine Hcl 37.5 Mg Tab PO 02/17/25 00:12 37.5 mg QPM JJ Administration Vitamin E 180 mg 01/18/25 09:00 01/18/25 08:36 Tocopheryl, Dl-Alpha 400 Units 180 Mg Cap PO 02/17/25 08:59 Not Given QAM JJ Past Medical History Medical History (Updated 01/18/25 @ 08:44 by Alexander Torres DO) Osteoarthritis Macular degeneration of left eye Depression Anxiety Cancer kidney cancer Hypothyroidism Hypertension Hyperlipidemia Seasonal allergies Environmental allergies Asthma Past Surgical History Surgical History Hx of cataract extraction right Hx of cholecystectomy History of ovarian cystectomy History of tonsillectomy and adenoidectomy Hx of appendectomy Hx of total hysterectomy History of pancreatic surgery cyst removed Hx of partial thyroidectomy right side History of right nephrectomy Social History Smoking Status: Never smoker Do You Dip or Chew Tobacco: No Hx Alcohol Use: Yes Alcohol type: wine alcohol intake frequency: holidays/special occasions only Hx Substance Use: No substance use type: does not use Physical Exam Vital Signs Last Vital Signs Temp 36.5 C 01/18/25 07:51 Pulse 82 01/18/25 07:51 Resp 18 01/18/25 07:51 BP 132/73 01/18/25 07:51 Pulse Ox 96 01/18/25 07:51 O2 Del Method Room Air 01/18/25 09:23 O2 Flow Rate 0 01/17/25 17:26 Testing Laboratory Results 01/18/25 07:41 01/18/25 07:41 PT 10.5 Seconds (9.0-12.0) 01/17/25 15:51 INR 1.0 (0.9-1.1) 01/17/25 15:51 APTT 27 Seconds (21-31) 01/17/25 15:51 Urine Color Dark Yellow 01/17/25 19: Urine Appearance Clear (Clear) 01/17/25 19: Urine pH 6.0 (4.5-7.5) 01/17/25 19: Ur Specific [place] 1.031 (1.000-1.030) H 01/17/25 19: Urine Protein 2+ (Negative) H 01/17/25: Urine Glucose (UA) Trace (Negative) H 01/17/25 19: Urine Ketones 3+ (Negative) H 01/17/25 19: Urine Nitrite Negative (Negative) 01/17/25 19: Ur Leukocyte Esterase Negative (Negative) 01/17/25 19:25 Urine WBC (Auto) 0-5 /hpf (0-5) 01/17/25 19: Urine RBC (Auto) 0-2 /hpf (0-2) 01/17/25: U Hyaline Cast (Auto) 0-2 /lpf (0-2) 01/17/25:25 U Epithel Cells (Auto) 3-5 /hpf (0-2) H 01/17/25 19:25 Urine Bacteria (Auto) None Seen (None Seen) 01/17/25 19:25
--- NOTE | 2025-01-18 10:29 | History & Physical Bridge Note ---
Date of Service January 18, 2025 History & Physical Bridge Note I have examined the patient, reviewed the History & Physical and in the interval since the performance of the History & Physical I have noted the following changes of clinical significance: Lexi is an 84-year-old female who presented to the emergency department after being found down by family members. Reportedly she must of fallen at some point 01/16/25. She does not remember the fall. During this fall, she does appear to have sustained a closed, traumatic, minimally displaced right hip fracture. Based on the x-rays and CT scan of the hip, this appears to be consistent with a basicervical femoral neck fracture versus an intertrochanteric hip fracture. I had a long discussion the patient regarding the nature of this injury. Discussed in great detail the pathoanatomy, pathophysiology and treatment options. Given that this represents a basicervical fracture/intertrochanteric hip fracture, I believe that the patient requires open versus closed reduction and cephalomedullary nailing of her right hip. I did discuss with her both operative and nonoperative care for this injury. I expressed to her that there are risks with operative management which include but are not limited to loss of life/limb, DVT/PE, nonunion, malunion, hardware complication, hardware failure, need for additional surgery, infection, wound healing complications, iatrogenic injury to bone/nerve/tendon/vessel. Expressed to her that the alternative to surgical management be for nonoperative care. Nonoperative care I believe carries with it a very high risk of nonunion and malunion as well as continued pain. With nonoperative care, the patient would likely be on bedrest while her fracture begins to heal and with this bed rest, I suspect that she would be at very high risk of developing complications of immobilization such as DVT/PE, pneumonia, ulcers. I did discuss with the patient and her family that hip fractures in elderly patients often times are a "harbinger of worsening state," I expressed to them in no uncertain terms that these fractures occur in patients who are nearing the end of their life. I expressed to them that this fracture represents an osteoporotic type fracture and the patient does have osteoporosis. I expressed to her that she is at risk of further fractures as well and she expressed understanding. Finally, I expressed to her that hip fractures are quite a serious injury that occur in elderly patients and often times result in significant impairments in mobility and function. I expressed to her that given the fact that she ambulates currently with a cane or a walker, I suspect that she will be using a walker most of the time and may even require wheelchair for longer periods even after surgery. Patient expressed understanding to this. After being informed of the risks, benefits and alternatives to surgical management, the patient is interested in pursuing operative care. She is alert and oriented x4 this morning and has signed informed written consent. She has been deemed medical optimized by the medical team and we will proceed to the operating room with haste operative plan: open versus closed reduction and internal fixation right hip
[2025-01-18] MEDS ORDERED: ONDANSETRON INJ 2 MG/ML 2 ML VIAL IV PRN (10:33)
[2025-01-18] MEDS ORDERED: PROMETHAZINE HCL 6.25 MG in SODIUM CHLORIDE 0.9% 50 ML IV PRN (10:33)
[2025-01-18] MEDS ORDERED: ATROPINE SULFATE 0.1 MG/ML 10ML SYR IV PRN (10:33)
[2025-01-18] MEDS ORDERED: HYDROmorphone INJ 1 MG/ML SYRINGE IV PRN (10:33)
[2025-01-18] MEDS: cefTRIAXone SODIUM 1,000 MG/50 ML BAG IV SCH (10:37)
[2025-01-18] MEDS ORDERED: SODIUM CHLORIDE 0.9% PF INJ 10 ML VIAL ONE ×2 (11:09)
[2025-01-18] MEDS ORDERED: ceFAZolin 330 MG/ML 1 GM VIAL ONE ×2 (11:09)
[2025-01-18] MEDS: LACTULOSE SYRUP 20 GM/30 ML UDC PO SCH (11:16)
[2025-01-18] MEDS: DOCUSATE SODIUM 100 MG CAP PO SCH (11:16)
[2025-01-18] MEDS: ACETAMINOPHEN 500 MG TAB PO SCH (11:16)
[2025-01-18] MEDS ORDERED: PHENYLEPHRINE 100MCG/ML 10ML SYR IV ONE ×2 (11:22→12:06)
[2025-01-18] MEDS ORDERED: ROCURONIUM BROMIDE 10 MG/ML 5 ML VIAL IV ONE (11:22)
[2025-01-18] MEDS ORDERED: DEXAMETHASONE SOD INJ 4 MG/ML VIAL ONE (11:22)
[2025-01-18] MEDS ORDERED: SUGAMMADEX SODIUM 200 MG/2 ML VIAL IV ONE (12:14)
[2025-01-18] MEDS: CEROVITE ADV FORMULA TAB PO SCH (12:38)
--- NOTE | 2025-01-18 12:57 | Fluoroscopy Report ---
FL femur RT 2V CLINICAL HISTORY: RT HIP FX COMPARISON STUDY: 01/17/2025 FLUOROSCOPY TIME: 216 seconds FLUOROSCOPY IMAGES: 7 EXPOSURE DOSE: 43 mGy FINDINGS: Fluoroscopy was provided for right femoral gamma nail placement. IMPRESSION: Intraoperative fluoroscopy. ACT 112: Negative or not required by law. Electronically signed by: Tobin Santana M.D. 01/18/2025 12:56 PM
--- NOTE | 2025-01-18 13:14 | Operative Report ---
Post Operative Report Pre & Post Diagnosis Operation Date: 01/18/25 07:05 Pre-Op Diagnosis: Closed right hip fracture Post-Op Diagnosis: Closed right hip fracture I identified the patient and participated in the time-out.: Yes Procedure Operation Date: 01/18/25 07:05 Actual Procedures p Right Hip Closed Reduction and Cephalomedullary Nailing, Physician Guided Fluoroscopy Greater than 1 Hour(Right) - Storm Padgett DO Surgeon Storm Padgett DO Administrative Assistant Office Manager none Estimated Blood Loss 25 Findings Consistent with Post-Op Diagnosis Specimens none Anesthesia Type General Complications none immediately apparent Disposition Disposition: Recovery Room Indications Lexi is an 84-year-old female who presented to the emergency department after being found down by family members. Reportedly she must of fallen at some point 01/16/25. She does not remember the fall. During this fall, she does appear to have sustained a closed, traumatic, minimally displaced right hip fracture. Based on the x-rays and CT scan of the hip, this appears to be consistent with a basicervical femoral neck fracture versus an intertrochanteric hip fracture. I had a long discussion the patient regarding the nature of this injury. Di scussed in great detail the pathoanatomy, pathophysiology and treatment options. Given that this represents a basicervical fracture/intertrochanteric hip fracture, I believe that the patient requires open versus closed reduction and cephalomedullary nailing of her right hip. I did discuss with her both operative and nonoperative care for this injury. I expressed to her that there are risks with operative management which include but are not limited to loss of life/limb, DVT/PE, nonunion, malunion, hardware complication, hardware failure, need for additional surgery, infection, wound healing complications, iatrogenic injury to bone/nerve/tendon/vessel. Expressed to her that the alternative to surgical management be for nonoperative care. Nonoperative care I believe carries with it a very high risk of nonunion and malunion as well as continued pain. With nonoperative care, the patient would likely be on bedrest while her fracture begins to heal and with this bed rest, I suspect that she would be at very high risk of developing complications of immobilization such as DVT/PE, pneumonia, ulcers. I did discuss with the patient and her family that hip fractures in elderly patients often times are a "harbinger of worsening state," I expressed to them in no uncertain terms that these fractures occur in patients who are nearing the end of their life. I expressed to them that this fracture represents an osteoporotic type fracture and the patient does have osteoporosis. I expressed to her that she is at risk of further fractures as well and she expressed understanding. Finally, I expressed to her that hip fractures are quite a serious injury that occur in elderly patients and often times result in significant impairments in mobility and function. I expressed to her that given the fact that she ambulates currently with a cane or a walker, I suspect that she will be using a walker most of the time and may even require wheelchair for longer periods even after surgery. Patient expressed understanding to this. After being informed of the risks, benefits and alternatives to surgical management, the patient is interested in pursuing operative care. She is alert and oriented x4 this morning and has signed informed written consent. She has been deemed medical optimized by the medical team and we will proceed to the operating room with haste operative plan: open versus closed reduction and internal fixation right hip Description of Procedure After informed consent was obtained, the patient was correctly identified in the preoperative holding suite, the operative site was marked with the surgeon's initials, the date of surgery, and the word yes. The patient was then taken to the operative suite. The department of anesthesia administered General Anesthesia. [facility] All bony prominences were well-padded. Briefing and timeout was performed. A ll implants were available and sterile at the time. BRIEFING AND DEBRIEFING: Pre and post operative briefing and debriefing was performed. Introductions were made, goals of the procedure were discussed, questions and concerns were addressed. The operative site markings were identified and appropriate. A time [id number] was performed, the patient's correct identity was confirmed and the correct operative sites were identified. The patients pre-operative antibiotic dosing and administration was confirmed along with other SCIP measures. The team was polled at the completion of the surgery and all team members were in agreement that the procedure was without complication, the counts are correct, the wound class was identified and suggestions for improvement were shared. after anesthesia was induced, the patient's feet were placed into the [place] boots. She was then transferred in supine fashion from the hospital bed to the [place] table and the perineal post was placed. All bony promises well-padded. The right upper extremitie was draped across the chest and the left upper extremity placed on well-padded armboard. The legs were then scissored. At this point, we pulled gentle traction on the leg and slightly internally rotated it and brought an x-ray to confirm an adequate reduction. The femur was well reduced with some slight step-off noted at the calcar region, however closed methods would not be enough to appropriately reduce this so we would plan for an open reduction during the case. We then prepped and draped the right hip in standard sterile fashion using ChloraPrep and an [place] shower curtain. We then used x-ray to maite out the anatomy the proximal femur and planned for our entry incision approximately 3 cm proximal to the greater trochanter, 3 cm in length, and in line with the femoral shaft on the lateral view. We incised sharply through skin and subcutaneous tissue and then dissected bluntly down to the level of the gluteal fascia. This was incised sharply and the starting wire was then introduced in an antegrade fashion until we obtain an appropriate start point just medial to the tip of the greater trochanter. In order to obtain this, we did need to use the awl and we confirmed the start point on both the AP and lateral fluoroscopic views. Once we were satisfied, we advanced a starting wire into the proximal femur. Over the starting wire we would use the opening reamer and then we removed the opening reamer and the starting wire and introduced the long ball-tipped guidewire. We advanced this down into the distal femoral segment and measured over the ball-tipped guidewire. We selected a 340 mm nail. The largest diameter nail available to us was 11 mm so at this point we opened the [employer]s TFN alpha 11 x 340 mm x 130 degrees right sided nail. At this point, prior to reaming and insertion of the nail, we made a 4 cm incision on the proximal lateral thigh in line with the femoral shaft through which we would obtain our open reduction. After incising through skin and dissecting bluntly through subcutaneous tissue, we incised the IT band longitudinally and through this incision and introduced a Snell elevator over the anterior femoral neck. We cleared all adherent soft tissues and then taking the same path, we introduced the bone hook safely around the inferior femoral neck. We pulled gentle traction laterally and this obtained an excellent reduction of the calcar. Then, over the ball-tipped guidewire, we would sequentially ream up into a 12-1/2 reamer where chatter was felt. Then, over the guidewire while holding the reduction, we introduced the nail that was attached to the insertion handle. We impacted this in an antegrade fashion until we were satisfied with the location of the nail. Next, we attached the lag bolt targeting guide and introduced it into our lateral incision such that it rested on the lateral cortex of the femur. Next, we then checked its position and intended path fluoroscopically on AP and lateral views. Once we were satisfied, we advanced the guidewire under fluoroscopic guidance and checked its position fluoroscopically. We advanced the wire into the femoral head such that it ended in a low center, center position femoral head. We measured over the guidewire and selected a 90 mm lag bolt. We would drill for the lag bolt and then placed this through the targeting guide. At this point, we compressed through the nail and excellent reduction was achieved. We would then remove the bone hook safely and removed the targeting wire. We then turned our attention distally and using a perfect [place] technique placed 1 static distal interlocking screw. We then removed the insertion handle and checked final fluoroscopic views of the entire construct. At this point we were satisfied with the reduction and stabilization so we began thorough irrigation of all the wounds and then our layered closure. The IT band and the gluteal fascia were closed with a running 0 Vicryl suture. The subcutaneous tissue was closed with 2-0 Vicryl and a 3-0 Monocryl was run in the subcuticular tissue. The wounds were then adhered with skin glue and once this had dried we placed Acticoat Flex, 4 x 4's, Tegaderms over all the wounds. The patient tolerated this procedure well and was transferred to the PACU in stable condition. Prior to transportation to PACU, all counts were correct and a briefing was performed at the end of the case. Physician-directed fluoroscopy for Greater than one hour was performed by myself to verify fracture alignment and the safe placement of all internal fixation. The final images saved to PACs showed views demonstrating satisfactory alignment of the fracture and stable internal fixation. Implant verification was performed by myself by reading and confirming the implant information on the packaging with the team before the sterile implants were opened. I was present for the entire procedure. Plan: Weight bearing status: WBAT RLE Wound care: keep dressing clean and dry Range of motion: as tolerated VTE Prophylaxis: okay to begin anticoagulation from orthopaedic standpoint Antibiotics: periop ancef Pain Control: multimodal Vitamin D Replacement: labs pending Discharge Plan: pending PT/OT Follow Up: with myself in 2 weeks I attest to the content of the Intraoperative Record and any orders documented therein. Any exceptions are noted below.
--- NOTE | 2025-01-18 13:31 | Orthopedic Progress Note ---
Date of Service January 18, 2025 Assessment & Plan (1) Closed right hip fracture: (2) Elevated troponin: (3) Osteoarthritis: (4) Macular degeneration of left eye: (5) Depression: (6) Anxiety: (7) Cancer: (8) Hypothyroidism: (9) Hypertension: (10) Hyperlipidemia: (11) Asthma: Plan After completion of the case, I was called by the service and repair supervisor, Dr. Dorado with regards to this patient. He notes that By the time that he had read the patient's echo, the patient was already asleep in the operating room. He notes that the echo did show some concerning findings for wall motion abnormalities. This in conjunction with the patient's elevated troponins and potential ST changes noted on EKG are concerning for potential myocardial infarction. He was on his way down to PACU to evaluate the patient. From an orthopedic standpoint, I am okay with anticoagulation should this be deemed necessary by the cardiology team. Admission and Anticipated Discharge Date Admission Date: January 17, 2025
--- NOTE | 2025-01-18 13:34 | XRay Report ---
XR femur RT 2V routine CLINICAL HISTORY: postop COMPARISON: 01/17/2025 FINDINGS: Interval right femoral gamma nail shows no hardware complication. The proximal femur fract ure is nondisplaced. There is expected soft tissue gas. There is osteoarthritis of both knees. IMPRESSION: Unremarkable postoperative exam. ACT 112: Negative or not required by law. Electronically signed by: Tobin Santana M.D. 01/18/2025 1:33 PM
--- NOTE | 2025-01-18 14:03 | Cardiology Consultation ---
Date of Consultation January 18, 2025 Assessment & Plan (1) Closed right hip fracture: (2) Abnormal echocardiogram: (3) Elevated troponin: 84-year-old female presented after a fall with prolonged time on the floor. She has a history of iodinated contrast media allergy with previous history of hives and rash. She underwent extensive imaging and clinical assessment for trauma including a CT of the head, chest x-ray, CTA of the cervical spine pelvis CT, hip CT. She was found to have comminuted fractures at the neck and intertrochanteric region of the right femur. High-sensitivity troponin was mildly elevated on presentation at 654 PG per mL and had since trended down to 494 and most recently 402 PG per mL as of 7:41 AM. Patient without subjective cardiac symptoms on presentation and still denies cardiac symptoms. EKG on arrival revealed age undetermined septal infarction with subtle ST segment elevation over Q waves with abnormalities slightly more prominent on the repeat tracing performed today after having undergone right hip nailing. Echocardiogram performed today revealed a large sized apical, septal, anteroseptal wall motion abnormality with hypokinesis of the segments and moderately reduced ejection fraction in the range of 35-40% with findings new compared to the previous echocardiogram performed in 2018. If this was an acute process, the large wall motion abnormality and degree of left ventricular systolic function on the echocardiogram is out of proportion to the relatively mild high-sensitivity troponin elevation. Is difficult to determine the acuity/chronicity of the findings which are suggestive of an age- indeterminate LAD territory infarct versus ischemia/injury. Alternatively, echocardiogram findings and the troponin levels could be compatible with an atypical presentation of a stress-induced cardiomyopathy. At present the patient is hemodynamically stable and has no symptoms to suggest acute heart failure or angina. Would recommend initiating aspirin 324 mg now followed by 81 mg daily. Prior to hospital treatment with metoprolol succinate 100 mg daily, losartan 100 mg daily, simvastatin to be continued. Will obtain fasting lipid panel tomorrow. At present, given absence of symptoms, will hold off on systemic anticoagulation with heparin as the risk of perioperative bleeding is felt to outweigh the prophylactic benefit at present. Case discussed with Dr Patricia Padgett and Dr Torres by phone for the purpose of coordination of care. I spent a total of 60 minutes on the date of service in preparation, delivery, and documentation of the care provided to this patient, excluding any time spent in the performance of separately billed services. Thiago Dorado DO History of Present Illness Attending Physician: Alexander Torres DO History of Present Illness Lexi Resendiz is an 84 year old female seen in cardiology consultation per the request of Dr Torres for the evaluation of an abnormal echocardiogram. The patient presented to the emergency department via ambulance last evening , 01/17/25 ,After having been found on the floor by feeling members. Per the admission history and physical the patient could not remember falling the evening before and it is felt that she was likely on the floor all night and could not manage to get up. She was unable to provide any history with regards to how she fell. Patient denied any symptoms of chest discomfort or shortness of breath on presentation yesterday per the admission history and physical. During my assessment of the patient in the postanesthesia care unit she was awake and oriented and comfortable. Vital signs are stable. She denied any chest discomfort or shortness of breath. Past Medical History: 1.HTN 2.Mild Left ventricular hypertrophy with hyperdynamic function, dobutamine stress echocardiogram performed in 2018 3.Dyslipidemia 4.Chronic dyspnea on exertion 5. Asthma 6. Renal cell carcinoma 7. Iodinated contrast media allergy with hives, rash Allergies Allergy/AdvReac Type Severity Reaction Status Date / Time Iodinated Contrast Media Allergy Intermediate HIVES,RASH Verified 09/20/18 10:03 [Iodinated Contrast- Oral and IV Dye] Home Medications Medication Instructions Recorded Confirmed Type aspirin 81 mg tablet,delayed 81 mg PO QAM 08/23/18 01/17/25 History release (Mateus Low Dose Aspirin) hydrochlorothiazide 25 mg tablet 25 mg PO QDL 08/23/18 01/17/25 History latanoprost 0.005 % eye drops 1 drp OPB HS 08/23/18 01/17/25 History losartan 100 mg tablet 100 mg PO QPM 08/23/18 01/17/25 History omeprazole magnesium 20 mg 20 mg PO QAM 08/23/18 01/17/25 History tablet,delayed release (Prilosec OTC) rizatriptan 10 mg disintegrating 10 mg PO DAILY PRN Migraine 08/23/18 01/17/25 History tablet (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) Headache simvastatin 40 mg tablet 40 mg PO PM 08/23/18 01/17/25 History sulindac 150 mg tablet 150 mg PO BID 08/23/18 01/17/25 History temazepam 15 mg capsule 15 mg PO HS PRN Sleep 08/23/18 01/17/25 History venlafaxine 37.5 mg tablet 37.5 mg PO QPM 08/23/18 01/17/25 History vit C 50 mg-E 15 unit-zinc cit 4.5 1 tab PO QDL 08/23/18 01/17/25 History mg-lutein 2.5 mg-zeaxan chew tablet ([employer]) vitamin E 268 mg (400 unit) capsule 400 unit PO QAM 08/23/18 01/17/25 History cinacalcet 30 mg tablet 30 mg PO QAM 01/17/25 01/17/25 History duloxetine 60 mg capsule,delayed 120 mg PO QAM 01/17/25 01/17/25 History release famotidine 20 mg tablet 20 mg PO HS 01/17/25 01/17/25 History metoprolol succinate 100 mg 100 mg PO QAM 01/17/25 01/17/25 History tablet,extended release 24 hr pregabalin 50 mg capsule 50 mg PO TID 01/17/25 01/17/25 History zafirlukast 20 mg tablet 20 mg PO QAM 01/17/25 01/17/25 History Patient History Medical History (Updated 01/18/25 @ 14:24 by [place] DO) Osteoarthritis Macular degeneration of left eye Depression Anxiety Cancer kidney cancer Hypothyroidism Hypertension Hyperlipidemia Seasonal allergies Environmental allergies Asthma Surgical History Hx of cataract extraction right Hx of cholecystectomy History of ovarian cystectomy History of tonsillectomy and adenoidectomy Hx of appendectomy Hx of total hysterectomy History of pancreatic surgery cyst removed Hx of partial thyroidectomy right side History of right nephrectomy Social History Smoking Status: Never smoker Second Hand Exposure: No; Do You Dip or Chew Tobacco: No; Hx Alcohol Use: Yes Alcohol type: wine Hx Substance Use: No Preferred Language: Andorran Communication Ability: Effective [employer] Required: No Beliefs That Will Affect Care: None Current Living Situation: Spouse Other Information That Helps Us Care for You: No Feels Safe at Home: Yes Safety Concerns: Feels Safe At This Time Assistive Devices: Cane, Glasses and Walker Review of Systems Review of Systems: All systems reviewed & are unremarkable except as noted in HPI & below Physical Exam Physical Exam: General: no acute distress and stated age Eyes: conjunctiva are pink and non-injected, sclera clear Neck: normal jugular venous pulse, no hepatojugular reflux Chest: normal shape and normal respiratory effort Lungs: clear to auscultation and percussion Cardiac Exam: - regular heart sounds, no murmurs, rubs, or gallops, no jugular venous distention Abdomen: abdomen soft, non-tender, no abnormal masses and no hepatosplenomegaly Extremities: not well visualized Neuro:awake, conversant, follows commands, no focal motor deficits Results & Data Vital Signs (Past 12 Hours) Vital Signs Temp Pulse Pulse Resp BP BP Pulse Ox 01/18/25 13:50 73 16 153/75 H 100 01/18/25 13:40 75 16 163/77 H 100 01/18/25 13:30 36.7 C 80 16 169/78 H 100 01/18/25 13:20 79 22 155/94 H 93 01/18/25 13:10 78 14 178/85 H 100 01/18/25 12:58 36.2 C L 78 16 181/77 H 100 01/18/25 10:15 36.5 C 87 20 155/86 H 99 01/18/25 09:23 01/18/25 07:51 36.5 C 82 18 132/73 96 01/18/25 02:10 36.7 C 97 H 16 149/71 H 95 O2 Del Method O2 Flow Rate 01/18/25 13:50 Nasal Cannula 2 01/18/25 13:40 Nasal Cannula 2 01/18/25 13:30 Nasal Cannula 2 01/18/25 13:20 Room Air 01/18/25 13:10 Oxymask 3 01/18/25 12:58 Oxymask 6 01/18/25 10:15 Room Air 01/18/25 09:23 Room Air 01/18/25 07:51 Room Air 01/18/25 02:10 Room Air Laboratory Results Cardiac Enzymes 01/17/25 01/17/25 01/18/25 Range/Units 15:51 22:41 07:41 AST 33 (13-39) U/L Troponin I High Sens 654.7 H* 494.8 H* D 402.0 H* (0-14) pg/ml Coagulation 01/17/25 Range/Units 15:51 PT 10.5 (9.0-12.0) Seconds APTT 27 (21-31) Seconds CBC 01/17/25 01/18/25 Range/Units 15:51 07:41 WBC 16.85 H 14.55 H (4.8-10.8) K/ul RBC 4.45 3.96 L (4.20-5.40) M/uL Hgb 13.5 12.3 (12.0-16.0) g/dl Hct 39.8 36.2 L (37.0-47.0) % Plt Count 241 209 (130-400) K/uL Neut # (Auto) 14.61 H 11.99 H (1.40-6.50) K/uL Lymph # (Auto) 0.87 L 1.18 L (1.20-3.40) K/uL [place] # (Auto) 1.19 H 1.26 H (0.11-0.59) K/uL Eos # (Auto) 0.00 0.02 (0.00-0.50) K/uL Baso # (Auto) 0.02 0.01 (0.00-0.20) K/uL Comprehensive Metabolic Panel 01/17/25 01/18/25 Range/Units 15:51 07:41 Sodium 141 143 (136-145) mmol/L Potassium 3.1 L 3.6 (3.5-5.1) mmol/L Chloride 106 113 H (98-107) mmol/L Carbon Dioxide 27 23 (21-32) mmol/L BUN 28 H 31 H (6-23) mg/dl Creatinine 0.66 0.72 (0.6-1.2) mg/dl Glucose 148 H 126 H (70-99(Fasting)) mg/dl Calcium 10.7 H 10.4 H (8.6-10.3) mg/dl AST 33 (13-39) U/L ALT 25 (7-52) U/L Alkaline Phosphatase 82 (34-104) U/L Total Protein 5.9 L (6.0-8.3) gm/dl Albumin 3.1 L (3.4-5.0) gm/dl Intake and Output 01/17/25 01/18/25 01/18/25 22:59 06:59 14:59 Intake Total 1200 / 1400 200 / 1400 1102.917 / 1102.917 Output Total 400 / 400 Balance 1200 / 1000 -200 / 1000 1102.917 / 1102.917 Intake: IV 1200 / 1400 200 / 1400 2.917 / 2.917 Piperacillin/Tazobactam 4.5 gm 100 / 200 100 / 200 2.917 / 2.917 In 100 ml @ 25 mls/hr IV Q8H JJ Rx#:[id number] Potassium Chloride / Wtr 10 meq 100 / 200 100 / 200 In 100 ml @ 100 mls/hr IV Q1H JJ Rx#:[id number] Sodium Chloride 0.9% 1,000 ml @ 1000 / 1000 999 mls/hr IV .Q1H1M ONE Rx#: [id number] IV Perioperative 1100 / 1100 Output: Urine Amount (Catheter) 400 / 400 [place]/Indwelling 400 / 400 Other: Other Intake Source NPO Weight 78.4 kg 77.1 kg 77.1 kg Weight Measurement Method Built in [facility] Built in [facility] Patient Weight 01/19/25 06:59 Weight 77.1 kg Diagnostic Findings EKG performed 01/17/2025 at 1722 and interpreted independently: Sinus rhythm at 93 bpm, age undetermined septal infarct pattern noted in leads V1-V3 with subtle J-point elevation noted in leads V2 and V3. Interpretation of lead V4 is technically limited due to the presence of artifact. Age-indeterminate inferior infarct pattern also noted with Q wave in lead III. Repeat EKG performed on 01/18/25 at 1348 during my assessment of patient in the postanesthesia care unit revealed sinus rhythm at 73 bpm with age-indeterminate septal infarct pattern noted in leads V1-V3 with subtle ST elevation over Q waves. Age-indeterminate inferior infarct pattern also noted in lead III. Compared to the previous tracing performed on 01/17/2025 the previously noted artifact has resolved, otherwise no significant interval change. -Compared to previous outpatient tracings performed 05/17/2023 and age- indeterminate anterior infarct pattern was noted in leads V3 to V6 at that time. Transthoracic echocardiogram performed 01/19/2024 at 9:22 AM, interpreted at 1310: There is a large sized apical, septal, anteroseptal wall motion abnormality with hypokinesis of the segments. The left ventricular ejection fraction is moderately reduced in the range of 35- 40%. The right ventricular chamber size and systolic function are qualitatively normal. Mild aortic valve sclerosis without stenosis noted. Grade 1 diastolic dysfunction noted. Compared to the report of the most recent outpatient study which is a dobutamine stress echocardiogram performed within the [facility] on 05/02/2018 the apical and septal wall motion abnormality is new, with normal resting wall motion noted at that time and hyperdynamic LV systolic function, LVEF > 70% at that time. - Echocardiogram findings on the present study suggestive of LAD territory ischemia, age-indeterminate injury, or perhaps atypical presentation of stress- induced cardiomyopathy. [place] [address] IN/OBS CONSULT LVL 4,60M Patient Type New History Comprehensive Exam Comprehensive Medical Decision Making High Complexity Diagnoses Closed right hip fracture S72.001A Abnormal echocardiogram R93.1 Elevated troponin R79.89 Time Spent (min) 60
--- NOTE | 2025-01-18 14:11 | Anesthesiology Progress Note ---
Date of Service January 18, 2025 Anesthesia Post Procedure Vital Signs Vital Signs: Temp Pulse Pulse Pulse Resp BP BP 01/18/25 13:50 73 16 153/75 H 01/18/25 13:40 75 16 163/77 H 01/18/25 13:30 36.7 C 80 16 169/78 H 01/18/25 13:20 79 22 155/94 H 01/18/25 13:10 78 14 178/85 H 01/18/25 12:58 36.2 C L 78 16 181/77 H 01/18/25 10:15 36.5 C 87 20 155/86 H 01/18/25 09:23 01/18/25 07:51 36.5 C 82 18 132/73 01/18/25 02:10 36.7 C 97 H 16 01/18/25 00:51 01/18/25 00:51 36.4 C L 98 H 18 152/77 H 01/18/25 00:28 98 H 01/17/25 23:13 01/17/25 23:01 36.9 C 105 H 20 147/90 H 01/17/25 22:00 87 20 140/75 01/17/25 21:00 87 20 117/66 01/17/25 20:30 90 18 140/93 01/17/25 19:33 102 H 18 153/81 H 01/17/25 18:44 01/17/25 18:26 20 168/78 H 01/17/25 18:08 163/86 H 01/17/25 18:00 89 20 01/17/25 17:51 91 H 16 01/17/25 17:36 96 H 19 01/17/25 17:31 168/90 H 01/17/25 17:30 88 01/17/25 17:26 36.6 C 88 16 159/83 H 01/17/25 17:26 36.6 C 88 16 159/83 H 01/17/25 17:17 BP Pulse Ox O2 Del Method O2 Flow Rate 01/18/25 13:50 100 Nasal Cannula 2 01/18/25 13:40 100 Nasal Cannula 2 01/18/25 13:30 100 Nasal Cannula 2 01/18/25 13:20 93 Room Air 01/18/25 13:10 100 Oxymask 3 01/18/25 12:58 100 Oxymask 6 01/18/25 10:15 99 Room Air 01/18/25 09:23 Room Air 01/18/25 07:51 96 Room Air 01/18/25 02:10 149/71 H 95 Room Air 01/18/25 00:51 Room Air 01/18/25 00:51 95 Room Air 01/18/25 00:28 01/17/25 23:13 Room Air 01/17/25 23:01 98 Room Air 01/17/25 22:00 94 Room Air 01/17/25 21:00 96 Room Air 01/17/25 20:30 96 Room Air 01/17/25 19:33 98 Room Air 01/17/25 18:44 Room Air 01/17/25 18:26 96 Room Air 01/17/25 18:08 97 Room Air 01/17/25 18:00 01/17/25 17:51 01/17/25 17:36 96 Room Air 01/17/25 17:31 01/17/25 17:30 01/17/25 17:26 100 Room Air 0 01/17/25 17:26 100 Room Air 01/17/25 17:17 Room Air Pain Intensity Right Hip: Pain Intensity: 6 Transfer of Care Handoff Completed per policy Notes Mental Status: alert / awake / arousable and participated in evaluation Patient Amnestic to Procedure: Yes Nausea / Vomiting: adequately controlled Pain: adequately controlled Airway Patency, RR, SpO2: stable & adequate BP & HR: stable & adequate Hydration State: stable & adequate Anesthetic Complications: no major complications apparent and Pt Satisfied with anesthetic care
--- NOTE | 2025-01-18 15:22 | Electrocardiogram Report ---
Test Reason : Blood Pressure : */* mmHG Vent. Rate : 93 BPM Atrial Rate : 93 BPM P-R Int : 152 ms QRS Dur : 90 ms QT Int : 328 ms P-R-T Axes : -16 -13 -13 degrees QTcB Int : 407 ms Normal sinus rhythm Septal infarct , age undetermined Inferior infarct , age undetermined Nonspecific T wave abnormality Abnormal ECG When compared with ECG of 19-Nov-2017 08:08, Septal infarct is now Present Confirmed by Vikas Wu ([id number]) on 01/18/2025 3:22:02 PM Referred By: REFERRED SELF Confirmed By: Vikas Wu
--- NOTE | 2025-01-18 15:22 | Electrocardiogram Report ---
Test Reason : Blood Pressure : */* mmHG Vent. Rate : 73 BPM Atrial Rate : 73 BPM P-R Int : 154 ms QRS Dur : 94 ms QT Int : 400 ms P-R-T Axes : 69 -20 27 degrees QTcB Int : 440 ms Normal sinus rhythm Septal infarct (cited on or before 17-Jan-2025) Abnormal ECG When compared with ECG of 17-Jan-2025 17:22, No significant change was found Confirmed by Vikas Wu ([id number] on 01/18/2025 3:22:15 PM Referred By: REFERRED SELF Confirmed By: Vikas Wu
--- NOTE | 2025-01-18 17:37 | Communication Note ---
Date of Service: January 18, 2025 Patient reassessed. Resting comfortably. Vital signs stable. Attempted to reach family to provide an update by phone. First contact in her chart is Augusta Muller. I attempted to call her. Was unable to reach her but left a voicemail message stating I was calling to provide updates. I then attempted to reach the second contact on her list, Juarez, her . Unable to connect with him. Thiago Dorado, DO
[2025-01-18] MEDS: POLYETHYLENE (MIRALAX) 17 GM PACK PO SCH (18:15)
[2025-01-18] MEDS ORDERED: Nursing to Pharmacy Communication SCH (18:15)
[2025-01-18] MEDS: ASPIRIN CHEW 324 MG PO ONE (18:36)
[2025-01-18] MEDS: MICONAZOLE NITRATE POWDER 85 GM EXT PRN (21:32)
[2025-01-19] MEDS: ASPIRIN CHEW 324 MG PO ONE (07:10)
[2025-01-19] MEDS: SODIUM CHLORIDE 0.9% 1,000 ML IV SCH (07:19)
[2025-01-19] MEDS: ASPIRIN 81 MG ECTAB PO SCH (07:27)
[2025-01-19 08:17] LABS: Hematocrit (blood only) 34.9 % (37.0-47.0); Hemoglobin 11.4 g/dl (12.0-16.0); Mean Corpuscular Hemoglobin 30.2 pg (25.0-34.0); Mean Corpuscular Volume 92.6 fL (80.0-100.0); Platelet Count 220 K/uL (130-400); RDW Standard Deviation 49.1 fL (36.4-46.3); Red Blood Count 3.77 M/uL (4.20-5.40); White Blood Count 14.18 K/ul (4.8-10.8)
[2025-01-19 08:35] LABS: Anion Gap 4.0 (3-11); Calcium 10.6 mg/dl (8.6-10.3); Carbon Dioxide 24.0 mmol/L (21-32); Chloride 115.0 mmol/L (98-107); Magnesium 2.2 mg/dl (1.7-2.4); Potassium 4.5 mmol/L (3.5-5.1); Sodium 143.0 mmol/L (136-145)
[2025-01-19 08:39] LABS: Blood Urea Nitrogen 38.0 mg/dl (6-23); Creatinine Clr Calc Pharmacy 48.5 ml/min; Glucose 126.0 mg/dl (70-99(Fasting))
[2025-01-19] MEDS ORDERED: risperiDONE 0.25 MG TAB PO PRN (10:24)
--- NOTE | 2025-01-19 10:38 | Hospitalist Progress Note ---
Date of Service January 19, 2025 Assessment & Plan (1) Closed right hip fracture: (2) Demand ischemia of myocardium: (3) Delirium due to another medical condition: (4) Hypokalemia: (5) Fall from standing: (6) Stercoral colitis: (7) Osteoarthritis: (8) Hypertension: (9) Hypothyroidism: (10) History of kidney cancer: Plan Patient 84-year-old female presented to the emergency room after being found on the floor for unknown period of time. Status post repair of right hip fracture. Echocardiogram shows new wall motion abnormalities and decreased ejection fraction's. Troponins consistent with demand ischemia associated with the trauma. This morning now with evidence of delirium due to her medical condition. Continue medical management of demand ischemia and decreased ejection fraction Continue Tylenol scheduled for pain control Decrease oxycodone dose to minimize encephalopathy due to narcotics Risperdal x 1 dose now for delirium. Schedule Risperdal dosing at bedtime. Risperdal as needed for delirium or irritability. Patient's as responded to bowel regimen. Discontinue lactulose, continue MiraLAX and Colace in the setting of limited mobility and narcotic use for pain. Anticipate she will need to continue a bowel regimen. WBC slightly improved. Concern for possible sterocolitis. Discontinue Rocephin, transition to oral antibiotics Continue therapies Electrolytes have been replaced, monitor laboratory studies and renal function Case management pursuing rehab placement. is at [facility] already for rehab. Admission and Anticipated Discharge Date Admission Date: January 17, 2025 Subjective Patient states had some moderate pain in the hip overnight but improved with medication. Sitting in chair and initially was answering questions appropriately. However as we conversed she thought we are in [place]. She also mentioned about seeing ants july along the [place]. She also thought that her was in [place]. Seems to be somewhat able to be reoriented but then easily gets confused again. She denies any chest pain. No shortness of breath. Physical Exam Physical Exam: Constitutional: Alert, sitting in a chair, no acute distress, nontoxic HEENT: Mucous membranes moist. Lungs: Clear to auscultation, decreased, no wheezes rales or rhonchi CV: S1-S2, regular Abdomen: Soft, nontender, nondistended Extremities: No significant edema, surgical dressing right hip clean and dry Neuro: Generally weak Psych: Cooperative, disoriented to place and time. Thinks that we are in [place]. She then recognizes that she is confused. Seems to be able to be reoriented. Results & Data Results & Data Vital Signs (Past 12 Hours) Vital Signs Temp Pulse Pulse Resp BP Pulse Ox O2 Del Method 01/19/25 08:00 82 01/19/25 08:00 Room Air 01/19/25 07:25 36.3 C L 74 20 128/68 96 Room Air 01/19/25 03:40 36.6 C 87 18 151/87 H 94 Nasal Cannula 01/18/25 23:00 36.4 C L 80 16 124/67 95 Nasal Cannula O2 Flow Rate 01/19/25 08:00 01/19/25 08:00 01/19/25 07:25 01/19/25 03:40 1 01/18/25 23:00 1 Diagnostic Findings Reviewed imaging, laboratory and diagnostic studies. Pertinent findings as below. WBCs 14.1 hemoglobin 11.4 Electrolytes stable Creatinine 0.88 Troponin 1.39, trending downward Patient with multiple stools, lactulose effective. (1) Closed right hip fracture Encounter type: initial encounter Qualified Code(s): S72.001A - Fracture of unspecified part of neck of right femur, initial encounter for closed fracture
[2025-01-19] MEDS: risperiDONE 0.25 MG TAB PO SCH ×2 (11:40→21:48)
--- NOTE | 2025-01-19 12:08 | Cardiology Progress Note ---
Date of Service January 19, 2025 Assessment & Plan (1) Closed right hip fracture: (2) Abnormal echocardiogram: (3) Elevated troponin: Plan: 84-year-old female presented after a fall with prolonged time on the floor. No evidence of rhabdomyolysis, CPK within normal limits. Mildly elevated troponin without anginal symptoms. Troponin down to 139 this morning. ECG with evidence of age-indeterminate septal infarct and anterior ST elevation suggesting poss ible scar/ aneurysm formation. Moderate LV systolic dysfunction without evidence of volume overload. EKG and echocardiogram suggested chronic process without acute anginal symptoms. Atypical presentation of stress-induced cardiomyopathy also considered. Hip fracture treated with nailing procedure 01/18/2025. No complications. Recommend continued conservative medical management. Continue aspirin, metoprolol succinate, losartan, and simvastatin. Add low-dose spironolactone 12.5 mg daily. Avoid systemic anticoagulation at this time as the risk risk of perioperative bleeding appears to outweigh benefit. Bobby Benítez DO, [facility] (4) Cardiomyopathy: Admission and Anticipated Discharge Date Admission Date: January 17, 2025 Subjective 84-year-old female seen and examined at bedside. Feeling well today. Denies chest pain or shortness of breath. Sinus rhythm noted on telemetry. Hip discomfort controlled. Review of Systems Review of Systems: All systems reviewed & are unremarkable except as noted in Subjective Physical Exam Constitutional: well nourished; no acute distress Respiratory: no respiratory distress, no labored breathing and no retractions Auscultation: no crackles, no rales, no rhonchi and no wheezes Cardiovascular: Rate/Rhythm: regular rate and regular rhythm Heart Sounds: normal S1, normal S2 and + murmur (1/6 systolic ejection murmur heard best at the right second costal space) Gastrointestinal (Abdomen): Inspection/Auscultation: abdomen normal to inspection and normal bowel sounds; abdomen not distended Percussion/Palpation: abdomen soft; abdomen nontender, no guarding and abdomen not rigid Neurologic: CN's II-XI intact bilaterally and moves all extremities Results & Data Vital Signs (Past 12 Hours) Vital Signs Temp Pulse Pulse Resp BP Pulse Ox O2 Del Method 01/19/25 11:01 36.5 C 83 19 140/84 93 Room Air 01/19/25 08:00 82 01/19/25 08:00 Room Air 01/19/25 07:25 36.3 C L 74 20 128/68 96 Room Air 01/19/25 03:40 36.6 C 87 18 151/87 H 94 Nasal Cannula O2 Flow Rate 01/19/25 11:01 01/19/25 08:00 01/19/25 08:00 01/19/25 07:25 01/19/25 03:40 1 Laboratory Results Cardiac Enzymes 01/19/25 Range/Units 07:49 Troponin I High Sens 139.6 H* D (0-14) pg/ml CBC 01/19/25 Range/Units 07:49 WBC 14.18 H (4.8-10.8) K/ul RBC 3.77 L (4.20-5.40) M/uL Hgb 11.4 L (12.0-16.0) g/dl Hct 34.9 L (37.0-47.0) % Plt Count 220 (130-400) K/uL Comprehensive Metabolic Panel 01/19/25 Range/Units 07:49 Sodium 143 (136-145) mmol/L Potassium 4.5 D (3.5-5.1) mmol/L Chloride 115 H (98-107) mmol/L Carbon Dioxide 24 (21-32) mmol/L BUN 38 H (6-23) mg/dl Creatinine 0.88 (0.6-1.2) mg/dl Glucose 126 H (70-99(Fasting)) mg/dl Calcium 10.6 H (8.6-10.3) mg/dl Intake and Output 01/18/25 01/19/25 01/19/25 22:59 06:59 14:59 Intake Total 862 / 1964.917 50 / 50 Output Total 375 / 475 100 / 475 2 / 2 Balance 487 / 1489.917 -100 / 1489.917 48 / 48 Intake: IV 862 / 864.917 50 / 50 Sodium Chloride 0.9% 1,000 ml @ 812 / 812 80 mls/hr IV .[id number] [facility] Rx#: [id number] [id number] SODIUM 1,000 mg In 50 / 50 50 / 50 50 ml @ 100 mls/hr IV Q24H [facility] Rx#:[id number] Output: Urine Amount (Catheter) 375 / 475 100 / 475 [place]/Indwelling 375 / 475 100 / 475 # Bowel Movements 2 / 2 Diagnostic Findings 2D echocardiogram report 01/18/2025: LVEF 35-40% Large sized apical, septal, anteroseptal wall motion abnormality with hypokinesis of the segments. Normal right ventricular size and function. Aortic valve sclerosis mild, without significant aortic valve stenosis. Grade 1 diastolic dysfunction. PG Care Time/CCT Total # of Minutes Spent Total Time Spent with Patient: Total time spent is greater than 50% in coordination of care (as documented) at patient's floor/unit and/or counseling patient: Coding Level of Care Code 41149 SUB INP/OBS CARE 3/50MIN Diagnoses Closed right hip fracture S72.001A Encounter type: initial encounter Abnormal echocardiogram R93.1 Elevated troponin R79.89 Cardiomyopathy I42.9 (1) Closed right hip fracture Encounter type: initial encounter Qualified Code(s): S72.001A - Fracture of unspecified part of neck of right femur, initial encounter for closed fracture
[2025-01-19] MEDS: SPIRONOLACTONE 12.5 MG TAB PO SCH (13:32)
--- NOTE | 2025-01-19 16:11 | Orthopedic Progress Note ---
Date of Service January 19, 2025 Assessment & Plan (1) Closed right hip fracture: (2) Elevated troponin: (3) Osteoarthritis: (4) Macular degeneration of left eye: (5) Depression: (6) Anxiety: (7) Cancer: (8) Hypothyroidism: (9) Hypertension: (10) Hyperlipidemia: (11) Asthma: Plan 84-year-old female postoperative day #1 status post open reduction and cephalomedullary nailing of right hip for right intertrochanteric hip fracture. Overall, she is doing well. She has been following by the cardiology team with continued monitoring for an echo abnormality. From an orthopedic standpoint, the patient can weight-bear as tolerated on her right lower extremity. She should keep her dressings clean and dry. PT/OT to work with the patient to determine an appropriate discharge plan. I will plan to see her in the office in 2 weeks for wound check. Admission and Anticipated Discharge Date Admission Date: January 17, 2025 Subjective 84-year-old female seen and examined at bedside. Feeling well today. Denies chest pain or shortness of breath. Review of Systems Review of Systems: All systems reviewed & are unremarkable except as noted in HPI & below Physical Exam Physical Exam: Surgical dressings clean dry and intact. Patient demonstrates active EHL/FHL function. Foot warm well-perfused. Results & Data Vital Signs (Past 12 Hours) Vital Signs Temp Pulse Pulse Resp BP Pulse Ox O2 Del Method 01/19/25 14:00 83 01/19/25 11:01 36.5 C 83 19 140/84 93 Room Air 01/19/25 08:00 82 01/19/25 08:00 Room Air 01/19/25 07:25 36.3 C L 74 20 128/68 96 Room Air Diagnostic Findings Postoperative imaging reviewed demonstrate stable internal fixation of right intertrochanteric hip fracture. (1) Closed right hip fracture Encounter type: initial encounter Qualified Code(s): S72.001A - Fracture of unspecified part of neck of right femur, initial encounter for closed fracture
[2025-01-19] MEDS: AMOXICILLIN/CLAVULANATE 875 MG TAB PO SCH (16:48)
[2025-01-20] MEDS: SODIUM CHLORIDE 0.9% 250 ML IV ONE (04:01)
[2025-01-20 06:27] LABS: Hematocrit (blood only) 32.2 % (37.0-47.0); Hemoglobin 10.7 g/dl (12.0-16.0); Mean Corpuscular Hemoglobin 31.4 pg (25.0-34.0); Mean Corpuscular Volume 94.4 fL (80.0-100.0); Platelet Count 207 K/uL (130-400); RDW Standard Deviation 49.5 fL (36.4-46.3); Red Blood Count 3.41 M/uL (4.20-5.40); White Blood Count 10.37 K/ul (4.8-10.8)
[2025-01-20 07:10] LABS: Anion Gap 3.0 (3-11); Blood Urea Nitrogen 36.0 mg/dl (6-23); Calcium 10.3 mg/dl (8.6-10.3); Carbon Dioxide 27.0 mmol/L (21-32); Chloride 110.0 mmol/L (98-107); Creatinine Clr Calc Pharmacy 45.9 ml/min; Glucose 96.0 mg/dl (70-99(Fasting)); Magnesium 2.1 mg/dl (1.7-2.4); Potassium 4.2 mmol/L (3.5-5.1); Sodium 140.0 mmol/L (136-145)
--- NOTE | 2025-01-20 09:27 | Orthopedic Progress Note ---
Date of Service January 20, 2025 Assessment & Plan (1) Closed right hip fracture: (2) Elevated troponin: (3) Osteoarthritis: (4) Macular degeneration of left eye: (5) Depression: (6) Anxiety: (7) Cancer: (8) Hypothyroidism: (9) Hypertension: (10) Hyperlipidemia: (11) Asthma: Plan 84-year-old female postoperative day #2 status post open reduction and cephalomedullary nailing of right hip for right intertrochanteric hip fracture. Overall, she is doing well. She has been followed by the cardiology team with continued monitoring for an echo abnormality discovered upon admission. From an orthopedic standpoint, the patient can weight-bear as tolerated on her right lower extremity. She should keep her dressings clean and dry. PT/OT to work with the patient to determine an appropriate discharge plan. I will plan to see her in the office in 2 weeks for wound check. Admission and Anticipated Discharge Date Admission Date: January 17, 2025 Subjective 84-year-old female seen and examined at bedside. Feeling well today. Denies chest pain or shortness of breath. Physical Exam Physical Exam: Surgical dressings clean dry and intact. Patient demonstrates active EHL/FHL function. Foot warm well-perfused. Results & Data Vital Signs (Past 12 Hours) Vital Signs Temp Pulse Pulse Resp BP Pulse Ox O2 Del Method 01/20/25 08:00 36.5 C 87 20 101/64 95 Room Air 01/20/25 03:16 36.4 C L 73 22 92/57 L 94 Room Air 01/19/25 22:53 36.7 C 70 20 107/58 L 98 Nasal Cannula 01/19/25 21:45 67 O2 Flow Rate 01/20/25 08:00 01/20/25 03:16 01/19/25 22:53 1.5 01/19/25 21:45 (1) Closed right hip fracture Encounter type: initial encounter Qualified Code(s): S72.001A - Fracture of unspecified part of neck of right femur, initial encounter for closed fracture
[2025-01-20] MEDS: DOCUSATE SODIUM 100 MG CAP PO SCH (10:17)
--- NOTE | 2025-01-20 12:28 | Hospitalist Progress Note ---
Date of Service January 20, 2025 Assessment & Plan (1) Closed right hip fracture: (2) Demand ischemia of myocardium: (3) Delirium due to another medical condition: (4) Hypokalemia: (5) Fall from standing: (6) Stercoral colitis: (7) Osteoarthritis: (8) Hypertension: (9) Hypothyroidism: (10) History of kidney cancer: Plan Patient 84-year-old female presented to the emergency room after being found on the floor for unknown period of time. Status post repair of right hip fracture. Echocardiogram shows new wall motion abnormalities and decreased ejection fraction's. Troponins consistent with demand ischemia associated with the trauma. Closed right hip fracture S/P Fall --S/P right hip closed reduction and cephalomedullary nailing by Dr. Padgett on 01/18/2025 Weightbearing as tolerated right lower extremity Continue PT OT, fall precautions Appreciate orthopedics input Needs follow-up with orthopedics in 2 weeks for wound check Pain control as needed PT recommends acute rehab Case management to help with discharge planning Hypotension Postoperative acute blood loss anemia Hold losartan Continue metoprolol succinate with holding parameters Received IV fluids Monitor blood pressure No indication for blood transfusion currently Delirium Minimize narcotics as able Reorient frequently Was started on risperidone Troponin elevation Abnormal echo No anginal symptoms Likely demand ischemia DD: Stress-induced cardiomyopathy --ECHO: Mild concentric LVH. Large sized apical, septal, anteroseptal wall motion abnormality with hypokinesis of the segments. EF 35 to 40%. Right ventricle is normal in size and function. Grade 1 diastolic dysfunction. Aortic valve sclerosis mild, without significant valvular stenosis. Appreciate cardiology input Continue aspirin, metoprolol succinate, statin simvastatin, Aldactone Resume losartan as able Stercoral colitis Continue bowel regimen Was empirically being treated with Augmentin H/O hypercalcemia ? Primary hyperparathyroidism Continue Cinacalcet Other chronic conditions Hypertension H/O renal cancer Hyperlipidemia Asthma Mood disorder CKD stage III DVT Px: Heparin SQ CODE STATUS Full code Disposition Acute rehab when accepted Admission and Anticipated Discharge Date Admission Date: January 17, 2025 Subjective Patient is seen and examined at bedside States having right hip pain at surgical site Also reports having some back pain Had bowel movement yesterday Denies any chest pain, dyspnea, nausea, vomiting, abdominal pain Oriented during my encounter Review of Systems Review of Systems: All systems reviewed & are unremarkable except as noted in Subjective Physical Exam Physical Exam: Physical Exam: Vitals signs as noted above General Appearance:Moderately built and nourished, no apparent distress, Elderly Head: normocephalic, Atraumatic Eyes: normal inspection, EOMI Neck: supple, Trachea midline Respiratory/Chest: Decreased breath sounds, CTA, No accessory muscle use Cardiovascular: S1, S2, + murmur Abdomen/GI:Soft, Non tender, Bowel sounds present Extremities/Musculoskeletal:normal inspection, no edema, R hip surgical dressing Neurologic/Psych:AAOX3, grossly no focal neurological deficits Skin: normal color, warm Results & Data Results & Data Vital Signs (Past 12 Hours) Vital Signs Temp Pulse Pulse Resp BP Pulse Ox O2 Del Method 01/20/25 11:00 36.5 C 69 20 119/62 96 Room Air 01/20/25 10:54 73 01/20/25 08:15 Room Air 01/20/25 08:00 36.5 C 87 20 101/64 95 Room Air 01/20/25 03:16 36.4 C L 73 22 92/57 L 94 Room Air Laboratory Results Short CBC 01/20/25 Range/Units 05:46 WBC 10.37 (4.8-10.8) K/ul Hgb 10.7 L (12.0-16.0) g/dl Hct 32.2 L (37.0-47.0) % Plt Count 207 (130-400) K/uL BMP 01/20/25 05:46 Sodium 140 Potassium 4.2 Chloride 110 H Carbon Dioxide 27 BUN 36 H Creatinine 0.93 Glucose 96 Calcium 10.3 (1) Closed right hip fracture Encounter type: initial encounter Qualified Code(s): S72.001A - Fracture of unspecified part of neck of right femur, initial encounter for closed fracture
[2025-01-20] MEDS: HEPARIN SOD 5,000 UNIT/0.5 ML VIAL SQ SCH (21:43)
[2025-01-21 07:25] LABS: Hematocrit (blood only) 31.1 % (37.0-47.0); Hemoglobin 10.4 g/dl (12.0-16.0); Mean Corpuscular Hemoglobin 31.2 pg (25.0-34.0); Mean Corpuscular Volume 93.4 fL (80.0-100.0); Platelet Count 202 K/uL (130-400); RDW Standard Deviation 47.8 fL (36.4-46.3); Red Blood Count 3.33 M/uL (4.20-5.40); White Blood Count 9.75 K/ul (4.8-10.8)
[2025-01-21 07:58] LABS: Anion Gap 2.0 (3-11); Blood Urea Nitrogen 21.0 mg/dl (6-23); Calcium 9.8 mg/dl (8.6-10.3); Carbon Dioxide 27.0 mmol/L (21-32); Chloride 111.0 mmol/L (98-107); Creatinine Clr Calc Pharmacy 63.6 ml/min; Glucose 88.0 mg/dl (70-99(Fasting)); Potassium 4.3 mmol/L (3.5-5.1); Sodium 140.0 mmol/L (136-145)
[2025-01-21] MEDS ORDERED: LOSARTAN POTASSIUM 50 MG TAB PO SCH (08:45)
--- NOTE | 2025-01-21 13:52 | Hospitalist Progress Note ---
Date of Service January 21, 2025 Assessment & Plan (1) Closed right hip fracture: (2) Demand ischemia of myocardium: (3) Delirium due to another medical condition: (4) Hypokalemia: (5) Fall from standing: (6) Stercoral colitis: (7) Osteoarthritis: (8) Hypertension: (9) Hypothyroidism: (10) History of kidney cancer: Plan Patient 84-year-old female presented to the emergency room after being found on the floor for unknown period of time. Status post repair of right hip fracture. Echocardiogram shows new wall motion abnormalities and decreased ejection fraction's. Troponins consistent with demand ischemia associated with the trauma. Closed right hip fracture S/P Fall --S/P right hip closed reduction and cephalomedullary nailing by Dr. Padgett on 01/18/2025 Weightbearing as tolerated right lower extremity Continue PT OT, fall precautions Appreciate orthopedics input Needs follow-up with orthopedics in 2 weeks for wound check Pain control as needed PT recommends acute rehab Case management to help with discharge planning Waiting for rehab placement Hypotension Postoperative acute blood loss anemia Continue metoprolol succinate with holding parameters Blood pressure better today Received IV fluids Resume losartan at lower dose 50 mg daily Monitor blood pressure Delirium Minimize narcotics as able Reorient frequently Was started on risperidone Minimize narcotics as able Troponin elevation Abnormal echo No anginal symptoms Likely demand ischemia DD: Stress-induced cardiomyopathy --ECHO: Mild concentric LVH. Large sized apical, septal, anteroseptal wall motion abnormality with hypokinesis of the segments. EF 35 to 40%. Right ventricle is normal in size and function. Grade 1 diastolic dysfunction. Aortic valve sclerosis mild, without significant valvular stenosis. Appreciate cardiology input Continue aspirin, metoprolol succinate, statin simvastatin, Aldactone Resume losartan as able Stercoral colitis Continue bowel regimen Was empirically being treated with Augmentin H/O hypercalcemia ? Primary hyperparathyroidism Continue Cinacalcet Other chronic conditions Hypertension H/O renal cancer Hyperlipidemia Asthma Mood disorder CKD stage III DVT Px: Heparin SQ CODE STATUS Full code Disposition Acute rehab when accepted Admission and Anticipated Discharge Date Admission Date: January 17, 2025 Subjective Patient is seen and examined at bedside States having poor sleep overnight which she attributes to nightmares Transiently confused this morning but was able to get reoriented Reports feeling tired today Right hip pain, back pain is controlled No other complaints today Denies any chest pain, dyspnea, nausea, vomiting, abdominal pain Review of Systems Review of Systems: All systems reviewed & are unremarkable except as noted in Subjective Physical Exam Physical Exam: Physical Exam: Vitals signs as noted above General Appearance:Moderately built and nourished, no apparent distress, Elderly Head: normocephalic, Atraumatic Eyes: normal inspection, EOMI Neck: supple, Trachea midline Respiratory/Chest: Decreased breath sounds, CTA, No accessory muscle use Cardiovascular: S1, S2, + murmur Abdomen/GI:Soft, Non tender, Bowel sounds present Extremities/Musculoskeletal:normal inspection, no edema, R hip surgical dressing Neurologic/Psych:AAOX2, grossly no focal neurological deficits Skin: normal color, warm Results & Data Results & Data Vital Signs (Past 12 Hours) Vital Signs Temp Pulse Pulse Resp BP Pulse Ox O2 Del Method 01/21/25 11:00 36.6 C 78 16 135/69 97 Room Air 01/21/25 08:00 Room Air 01/21/25 08:00 36.6 C 87 18 145/63 H 95 Room Air 01/21/25 07:50 70 01/21/25 03:54 36.7 C 76 20 138/73 94 Room Air Laboratory Results Short CBC 01/21/25 Range/Units 06:48 WBC 9.75 (4.8-10.8) K/ul Hgb 10.4 L (12.0-16.0) g/dl Hct 31.1 L (37.0-47.0) % Plt Count 202 (130-400) K/uL BMP 01/21/25 06:48 Sodium 140 Potassium 4.3 Chloride 111 H Carbon Dioxide 27 BUN 21 Creatinine 0.67 Glucose 88 Calcium 9.8 (1) Closed right hip fracture Encounter type: initial encounter Qualified Code(s): S72.001A - Fracture of unspecified part of neck of right femur, initial encounter for closed fracture
[2025-01-22 06:41] LABS: Hematocrit (blood only) 32.8 % (37.0-47.0); Hemoglobin 10.6 g/dl (12.0-16.0); Mean Corpuscular Hemoglobin 29.9 pg (25.0-34.0); Mean Corpuscular Volume 92.7 fL (80.0-100.0); Platelet Count 220 K/uL (130-400); RDW Standard Deviation 46.7 fL (36.4-46.3); Red Blood Count 3.54 M/uL (4.20-5.40); White Blood Count 9.58 K/ul (4.8-10.8)
[2025-01-22 07:13] LABS: Blood Urea Nitrogen 16 mg/dl (6-23); Calcium 9.7 mg/dl (8.6-10.3); Carbon Dioxide 32 mmol/L (21-32); Chloride 104 mmol/L (98-107); Creatinine Clr Calc Pharmacy 52.0 ml/min; Glucose 89 mg/dl (70-99(Fasting))
[2025-01-22 07:48] LABS: Potassium 4.2 mmol/L (3.5-5.1); Sodium 140.0 mmol/L (136-145)
--- NOTE | 2025-01-22 14:22 | Hospitalist Progress Note ---
Date of Service January 22, 2025 Assessment & Plan (1) Closed right hip fracture: (2) Demand ischemia of myocardium: (3) Delirium due to another medical condition: (4) Hypokalemia: (5) Fall from standing: (6) Stercoral colitis: (7) Osteoarthritis: (8) Hypertension: (9) Hypothyroidism: (10) History of kidney cancer: Plan Ms Pitt is an 84-year-old female with significant past medical history of hypertension, generalized osteoarthritis, history of renal cancer, h yperlipidemia, moderate persistent asthma, mild depression, hypertensive kidney disease stage III 3A and also personal history of falls apparently was found on floor today by the family members admitted for right hip fracture s/p reduction and nailing on 01/18. #Closed right hip fracture s/p mechanical fall --right hip closed reduction and cephalomedullary nailing by Dr. Padgett on 01/18/2025 Weightbearing as tolerated right lower extremity Continue PT OT, fall precautions Appreciate orthopedics input Needs follow-up with orthopedics in 2 weeks for wound check Plan for Rehab #relative hypotension resolved #Hypertension #Postoperative acute blood loss anemia Continue metoprolol succinate with holding parameters Continue losartan at lower dose 50 mg daily Monitor blood pressure #Delirium Minimize narcotics as able Reorient frequently Was started on risperidone, continue Minimize narcotics as able #Troponin elevation, likely 2/2 demand from trauma #Abnormal echo --ECHO: Mild concentric LVH. Large sized apical, septal, anteroseptal wall motion abnormality with hypokinesis of the segments. EF 35 to 40%. Right ventricle is normal in size and function. Grade 1 diastolic dysfunction. Aortic valve sclerosis mild, without significant valvular stenosis. Appreciate cardiology input Continue aspirin, metoprolol succinate, statin simvastatin, Aldactone continue losartan as able #Stercoral colitis Continue bowel regimen Was empirically being treated with Augmentin, plan to complete course #H/O hypercalcemia ? Primary hyperparathyroidism Continue Cinacalcet DVT Px: Heparin SQ CODE STATUS Full code Disposition Acute rehab when accepted, likely tomorrow Admission and Anticipated Discharge Date Admission Date: January 17, 2025 Subjective Reports some discomfort, but improving day by day Denies any fevers, chills or other acute concerns Physical Exam Constitutional: WD/WN, vitals as above Respiratory: normal respiratory effort, lungs clear to auscultation Cardiovascular: RRR, no murmur, no edema Skin: dressing on right hip CDI, surrounding ecchymosis noted Results & Data Results & Data Vital Signs (Past 12 Hours) Vital Signs Temp Pulse Pulse Pulse Resp BP Pulse Ox 01/22/25 11:06 36.6 C 79 18 121/60 95 01/22/25 10:55 76 01/22/25 09:47 01/22/25 08:00 88 01/22/25 07:46 36.8 C 77 18 138/78 97 01/22/25 04:26 36.5 C 68 17 154/68 H 96 O2 Del Method 01/22/25 11:06 Room Air 01/22/25 10:55 01/22/25 09:47 Room Air 01/22/25 08:00 01/22/25 07:46 01/22/25 04:26 Room Air Laboratory Results Short CBC 01/22/25 Range/Units 06:09 WBC 9.58 (4.8-10.8) K/ul Hgb 10.6 L (12.0-16.0) g/dl Hct 32.8 L (37.0-47.0) % Plt Count 220 (130-400) K/uL BMP 01/22/25 01/22/25 06:09 07:15 Sodium TNP 140 Potassium TNP 4.2 Chloride 104 Carbon Dioxide 32 BUN 16 Creatinine 0.82 Glucose 89 Calcium 9.7 Medications Administered Home Medications Medication Instructions Recorded Confirmed Last Taken aspirin 81 mg tablet,delayed 81 mg PO QAM 08/23/18 01/17/25 01/16/25 release (Mateus Low Dose Aspirin) hydrochlorothiazide 25 mg tablet 25 mg PO QDL 08/23/18 01/17/25 01/16/25 latanoprost 0.005 % eye drops 1 drp OPB HS 08/23/18 01/17/25 01/16/25 losartan 100 mg tablet 100 mg PO QPM 08/23/18 01/17/25 01/16/25 omeprazole magnesium 20 mg 20 mg PO QAM 08/23/18 01/17/25 01/16/25 tablet,delayed release (Prilosec OTC) rizatriptan 10 mg disintegrating 10 mg PO DAILY PRN Migraine 08/23/18 01/17/25 09/19/18 tablet (Maxalt-TENTER[employer] M[employer]) Headache simvastatin 40 mg tablet 40 mg PO PM 08/23/18 01/17/25 01/16/25 sulindac 150 mg tablet 150 mg PO BID 08/23/18 01/17/25 01/16/25 temazepam 15 mg capsule 15 mg PO HS PRN Sleep 08/23/18 01/17/25 09/19/18 venlafaxine 37.5 mg tablet 37.5 mg PO QPM 08/23/18 01/17/25 01/16/25 vit C 50 mg-E 15 unit-zinc cit 4.5 1 tab PO QDL 08/23/18 01/17/25 01/16/25 mg-lutein 2.5 mg-zeaxan chew tablet ([employer]) vitamin E 268 mg (400 unit) capsule 400 unit PO QAM 08/23/18 01/17/25 01/16/25 cinacalcet 30 mg tablet 30 mg PO QAM 01/17/25 01/17/25 01/16/25 duloxetine 60 mg capsule,delayed 120 mg PO QAM 01/17/25 01/17/25 01/16/25 release famotidine 20 mg tablet 20 mg PO HS 01/17/25 01/17/25 01/16/25 metoprolol succinate 100 mg 100 mg PO QAM 01/17/25 01/17/25 01/16/25 tablet,extended release 24 hr pregabalin 50 mg capsule 50 mg PO TID 01/17/25 01/17/25 01/16/25 zafirlukast 20 mg tablet 20 mg PO QAM 01/17/25 01/17/25 01/16/25 Active Medications Generic Name Dose Route Start Last Admin Trade Name So PRN Reason Stop Dose Admin Acetaminophen 1,000 mg 01/18/25 09:00 01/22/25 09:45 Acetaminophen 500 Mg Tab PO 02/17/25 08:59 1,000 mg TID JJ Administration Amoxicillin/Clavulanate Potassium 1 tab 01/19/25 17:00 01/22/25 08:55 Amoxicillin/Clavulanate 875 Mg Tab PO 01/23/25 16:59 1 tab BIDM JJ Administration Protocol Aspirin 81 mg 01/19/25 09:00 01/22/25 09:38 Aspirin 81 Mg Ectab PO 02/18/25 08:59 81 mg QAM JJ Administration Cinacalcet 30 mg 01/18/25 09:00 01/22/25 09:40 Cinacalcet Hcl 30 Mg Tab PO 02/17/25 08:59 30 mg QAM JJ Administration Docusate Sodium 100 mg 01/20/25 09:00 01/22/25 09:40 Docusate Sodium 100 Mg Cap PO 02/19/25 08:59 100 mg DAILY JJ Administration Duloxetine HCl 120 mg 01/18/25 09:00 01/22/25 09:37 Duloxetine Hcl 60 Mg Cap PO 02/17/25 08:59 120 mg QAM JJ Administration Famotidine 20 mg 01/18/25 00:13 01/21/25 20:26 Famotidine 20 Mg Tab PO 02/17/25 00:12 20 mg HS JJ Administration Heparin Sodium (Porcine) 5,000 units 01/20/25 21:00 01/22/25 09:45 Heparin Sod 5,000 Unit/0.5 Ml Vial SQ 02/19/25 20:59 5,000 units Q12 JJ Administration Latanoprost 1 drops 01/18/25 00:13 01/21/25 20:28 Latanoprost 0.005% Op Soln 2.5 Ml Btl OPB 02/17/25 00:12 1 drops HS JJ Administration Metoprolol Succinate 100 mg 01/18/25 09:00 01/22/25 09:38 Metoprolol Succ 50mg Ext Rel Tab PO 02/17/25 08:59 100 mg QAM JJ Administration Miconazole Nitrate 1 appln 01/18/25 09:48 01/18/25 21:32 Miconazole Nitrate Powder 85 Gm EXT 02/17/25 09:47 1 appln PRN PRN Administration Affected Skin Folds Miscellaneous 1 each 01/18/25 08:00 01/22/25 09:39 Zafirlukast - Order Awaiting Action N/A 02/17/25 07:59 Not Given QS JJ Multivitamins/Minerals 1 tab 01/18/25 11:30 01/22/25 12:54 Cerovite Adv Formula Tab PO 02/17/25 11:29 1 tab QDL JJ Administration Oxycodone HCl 2.5 mg 01/19/25 10:32 01/21/25 20:26 Oxycodone Hcl Ir 5 Mg Tab (Immediate Release) PO 02/01/25 08:47 2.5 mg Q4H PRN Administration Pain Pantoprazole Sodium 40 mg 01/18/25 09:00 01/22/25 09:38 Pantoprazole 40 Mg Tab PO 02/17/25 08:59 40 mg QAM JJ Administration Polyethylene Glycol 17 gm 01/18/25 09:00 01/22/25 09:45 Polyethylene (Miralax) 17 Gm Pack PO 02/17/25 08:59 17 gm DAILY JJ Administration Pregabalin 50 mg 01/18/25 00:13 01/22/25 09:45 Pregabalin 50 Mg Cap PO 02/17/25 00:12 50 mg TID JJ Administration Risperidone 0.5 mg 01/19/25 21:00 01/21/25 20:29 Risperidone 0.25 Mg Tab PO 02/18/25 20:59 0.5 mg HS JJ Administration Simvastatin 40 mg 01/18/25 00:13 01/21/25 20:28 Simvastatin 40 Mg Tab PO 02/17/25 00:12 40 mg PM JJ Administration Spironolactone 12.5 mg 01/19/25 12:15 01/22/25 09:47 Spironolactone 12.5 Mg Tab PO 02/18/25 12:14 12.5 mg DAILY JJ Administration Venlafaxine HCl 37.5 mg 01/18/25 00:13 01/21/25 20:29 Venlafaxine Hcl 37.5 Mg Tab PO 02/17/25 00:12 37.5 mg QPM JJ Administration Vitamin E 180 mg 01/18/25 09:00 01/22/25 09:37 Tocopheryl, Dl-Alpha 400 Units 180 Mg Cap PO 02/17/25 08:59 180 mg QAM JJ Administration (1) Closed right hip fracture Encounter type: initial encounter Qualified Code(s): S72.001A - Fracture of unspecified part of neck of right femur, initial encounter for closed fracture
[2025-01-23 05:57] LABS: Hematocrit (blood only) 34.1 % (37.0-47.0); Hemoglobin 11.5 g/dl (12.0-16.0); Mean Corpuscular Hemoglobin 31.1 pg (25.0-34.0); Mean Corpuscular Volume 92.2 fL (80.0-100.0); Platelet Count 271 K/uL (130-400); RDW Standard Deviation 46.6 fL (36.4-46.3); Red Blood Count 3.70 M/uL (4.20-5.40); White Blood Count 10.75 K/ul (4.8-10.8)
[2025-01-23 06:13] LABS: Anion Gap 5.0 (3-11); Blood Urea Nitrogen 16.0 mg/dl (6-23); Calcium 9.8 mg/dl (8.6-10.3); Carbon Dioxide 29.0 mmol/L (21-32); Chloride 107.0 mmol/L (98-107); Creatinine Clr Calc Pharmacy 52.0 ml/min; Glucose 103.0 mg/dl (70-99(Fasting)); Magnesium 1.9 mg/dl (1.7-2.4); Potassium 4.3 mmol/L (3.5-5.1); Sodium 141.0 mmol/L (136-145)
--- NOTE | 2025-01-23 11:04 | Discharge Summary ---
Discharge Summary Date of Service January 23, 2025 Principal Dx & Hospital Course #1 = Principal Diagnosis (1) Closed right hip fracture: (2) Demand ischemia of myocardium: (3) Delirium due to another medical condition: (4) Hypokalemia: (5) Fall from standing: (6) Stercoral colitis: (7) Osteoarthritis: (8) Hypertension: (9) Hypothyroidism: (10) History of kidney cancer: Plan Ms Pitt is an 84-year-old female with significant past medical history of hypertension, generalized osteoarthritis, history of renal cancer, hyperlipidemia, moderate persistent asthma, mild depression, hypertensive kidney disease stage III 3A and also personal history of falls apparently was found on floor today by the family members admitted for right hip fracture s/p reduction and nailing on 01/18. Patient followed by cardiology during admission given elevated troponin, with differential of stress induced cardiomyopathy. Patient was continued on ARB, metoprolol and statin. Spironolactone was added. Patient was started on risperidone for agitation. Overall, pain was better con #Closed right hip fracture s/p mechanical fall --right hip closed reduction and cephalomedullary nailing by Dr. Padgett on 01/18/2025 Weightbearing as tolerated right lower extremity Continue PT OT, plan for rehab Appreciate orthopedics input Needs follow-up with orthopedics in 2 weeks for wound check #relative hypotension resolved #Hypertension #Postoperative acute blood loss anemia Continue metoprolol succinate Continue losartan at lower dose 50 mg daily Continue newly started spironolatcone #Delirium Minimize narcotics as able Reorient frequently Was started on risperidone, continue Minimize narcotics as able #Troponin elevation, likely 2/2 demand from trauma #Abnormal echo --ECHO: Mild concentric LVH. Large sized apical, septal, anteroseptal wall motion abnormality with hypokinesis of the segments. EF 35 to 40%. Right ventricle is normal in size and function. Grade 1 diastolic dysfunction. Aortic valve sclerosis mild, without significant valvular stenosis. Appreciate cardiology input Continue aspirin, metoprolol succinate, statin simvastatin, Aldactone continue losartan as able #Stercoral colitis Continue bowel regimen Was empirically being treated with Augmentin, completed course #H/O hypercalcemia ? Primary hyperparathyroidism Continue Cinacalcet Notes For Next Care Provider Medication Changes From Visit losartan was DECREASED to 50mg daily DISCONTINUE hydrochlorothiazide START Spironolactone 12.5mg daily START Risperidone 0.5mg at bedtime as needed Risperidone for agitation Admission HPI Per Admitting Provider She is an 84-year-old female with significant past medical history of hypertension, generalized osteoarthritis, history of renal cancer, hyperlipidemia, moderate persistent asthma, mild depression, hypertensive kidney disease stage III 3A and also personal history of falls apparently was found on floor today by the family members. She cannot remember falling the evening before and apparently she was on floor probably whole night and could not manage to get up. She cannot remember how did she fall and he did not have any warning before the fall. Denies any recent fever and/or chills and denies any problem with urine and bowel habits. She complains of pain in the right hip with any movement of the lower extremities and complains to have irritation in the skin send the back. Denies any chest pain, palpitation or shortness of breath,. She was noted to have right hip fracture and also her troponin was elevated with increasing white count as well. She was started with empiric Zosyn and also orthopedic consult and was admitted to medical telemetry unit for continuation of care Admission Exam Per Admitting Provider Physical Exam: Lying in bed with some distress due to his skin irritation and pain with movement of the joints Constitutional: well developed, well nourished, + ill appearing and + obese Eyes: PERRL, conjunctivae normal, anicteric sclerae ENMT: external ear and nose normal, oropharynx normal Neck: trachea midline, no thyromegaly Respiratory: no respiratory distress Auscultation: + diminished lung sounds and + crackles (Minimal crackles at the bases) Cardiovascular: Rate/Rhythm: regular rate, regular rhythm and + tachycardic Heart Sounds: normal S1 and normal S2; no murmur Extremities: + edema (Trace edema bilaterally) Gastrointestinal (Abdomen): Inspection/Auscultation: normal bowel sounds; abdomen not distended Percussion/Palpation: abdomen soft; abdomen nontender Musculoskeletal: Has osteoarthritis but no acute arthritis of any joint. Movement of the right lower extremity reduced pain in the right hip Neurologic: normal touch/pain/proprioception and moves all extremities; no focal motor deficits Lymphatic: no cervical or axillary lymphadenopathy Discharge Exam Constitutional WD/WN, vitals as above Respiratory normal respiratory effort, lungs clear to auscultation Cardiovascular RRR, no murmur, no edema Neurologic PERRL, EOMI, accommodation nl, no face palsy, no dysarthria Updated Medication List Medication Instructions Recorded Confirmed Type aspirin 81 mg tablet,delayed 81 mg PO QAM 08/23/18 01/17/25 History release (Mateus Low Dose Aspirin) latanoprost 0.005 % eye drops 1 drp OPB HS 08/23/18 01/17/25 History omeprazole magnesium 20 mg 20 mg PO QAM 08/23/18 01/17/25 History tablet,delayed release (Prilosec OTC) rizatriptan 10 mg disintegrating 10 mg PO DAILY PRN Migraine 08/23/18 01/17/25 History tablet (Maxalt-HVAC TECHNICIAN [employer]IDENTIAL) Headache simvastatin 40 mg tablet 40 mg PO PM 08/23/18 01/17/25 History sulindac 150 mg tablet 150 mg PO BID 08/23/18 01/17/25 History temazepam 15 mg capsule 15 mg PO HS PRN Sleep 08/23/18 01/17/25 History venlafaxine 37.5 mg tablet 37.5 mg PO QPM 08/23/18 01/17/25 History vit C 50 mg-E 15 unit-zinc cit 4.5 1 tab PO QDL 08/23/18 01/17/25 History mg-lutein 2.5 mg-zeaxan chew tablet ([employer] [facility]) vitamin E 268 mg (400 unit) capsule 400 unit PO QAM 08/23/18 01/17/25 History cinacalcet 30 mg tablet 30 mg PO QAM 01/17/25 01/17/25 History duloxetine 60 mg capsule,delayed 120 mg PO QAM 01/17/25 01/17/25 History release famotidine 20 mg tablet 20 mg PO HS 01/17/25 01/17/25 History metoprolol succinate 100 mg 100 mg PO QAM 01/17/25 01/17/25 History tablet,extended release 24 hr pregabalin 50 mg capsule 50 mg PO TID 01/17/25 01/17/25 History zafirlukast 20 mg tablet 20 mg PO QAM 01/17/25 01/17/25 History acetaminophen 500 mg tablet 1,000 mg (2 x 500 mg) PO TID #0 01/23/25 Rx (Tylenol Extra Strength) tabs docusate sodium 100 mg capsule 100 mg PO DAILY 3 days #3 caps 01/23/25 Rx losartan 100 mg tablet 50 mg (1/2 x 100 mg) PO QPM #30 01/23/25 Rx tabs oxycodone 5 mg tablet 2.5 mg (1/2 x 5 mg) PO Q4H PRN 01/23/25 Rx pain 30 days #30 tabs polyethylene glycol 3350 17 gram 17 g PO DAILY #30 ea 01/23/25 Rx oral powder packet (Miralax) risperidone 0.25 mg tablet 0.25 mg PO Q8H PRN agitation 30 01/23/25 Rx days #60 tabs risperidone 0.25 mg tablet 0.5 mg (2 x 0.25 mg) PO HS 30 days 01/23/25 Rx #60 tabs spironolactone 25 mg tablet 12.5 mg (1/2 x 25 mg) PO DAILY 30 01/23/25 Rx days #15 tabs Hospital Stay Data Consultations 01/17/25 19:07 ED Decision to Admit Stat 01/17/25 20:53 Consult Orthopedic Surgery Routine 01/18/25 13:18 Consult Cardiology Routine Procedures Performed Operation Date: 01/18/25 07:05 Actual Procedures p Right Hip Closed Reduction and Cephalomedullary Nailing, Physician Guided Fluoroscopy Greater than 1 Hour(Right) - Storm Padgett DO Diagnostic Imagining Performed 01/17/25 17:10 CT cervical spine wo con Stat CT head/brain wo con Stat 01/17/25 20:36 CT pelvis wo con Stat 01/17/25 21:00 CT hip RT wo con Stat 01/18/25 FL femur RT 2V Routine 01/18/25 02:30 CT Abd and Pelvis [CT abd pelvis wo con] Stat Pending Results Patient Have Any Pending Studies at Discharge: No Discharge Instructions Given to Patient (Per Discharging Provider) You were admitted after a fall and found to have a right hip fracture. You underwent repair 01/18 of your right hip You had multiple medication adjustments. Your losartan was DECREASED to 50mg daily You will DISCONTINUE hydrochlorothiazide You will START Spironolactone 12.5mg daily You will START Risperidone 0.5mg at bedtime You will have as needed Risperidone for agitation Total Time Total Time Spent Total Time Spent (In Minutes): 45
[2025-01-23 11:49] VITALS: BP 136/84; PULSE 99; RESP 20; TEMP 97.9; O2SAT 92
== END 2025-01-23 14:27 | DRG 481 ==
LOC: ED 17:04 → 2N 20:16 → SUATTDRO 20:16 → 2N 23:13 → 2S 01-18 14:25 → 2E 01-22 11:03